=== PATIENT | female | born 1985 | race Caucasian/White ===

== ENCOUNTER 2021-03-16 10:56 | Outpatient (REF) | payer OTHER, SELFPAY ==
--- NOTE | ~2021-03-16 | XR_ITS ---
EXAMINATION: XR SINUSES CLINICAL INFORMATION: Other specified disorders of nose and nasal structures. COMPARISON: None TECHNIQUE: 4 views of the sinuses were obtained. FINDINGS: Paranasal sinuses appear clear without air-fluid levels. No fractures are identified. No radiodense foreign bodies. XR/XR sinus min 3V IMPRESSION: Unremarkable examination.
== END 2021-03-16 10:57 | disposition home or self-care (01) ==
LOC: HO.HMGCX 10:56
PROVIDERS: PCP Internal Medicine; Visit Provider Internal Medicine
DX: J34.89 Other specified disorders of nose and nasal sinuses (principal); J32.9 Chronic sinusitis, unspecified; R09.81 Nasal congestion
CPT/HCPCS: 70220

== ENCOUNTER 2023-04-07 09:01 | Outpatient (AMB) | payer OTHER, SELFPAY ==
--- NOTE | 2023-04-07 09:41 | MHC.PC.OV ---
Vital Signs 04/07/23 09:42 Height 5 ft 1 in Weight 150 lb 4 oz BMI 28.4 BP 106/74 Blood Pressure Location Lt brachial Position Sitting Pulse 88 Pulse Source Pulse Oximeter Pulse Oximetry (%) 98 Oxygen Delivery Method Room Air Intake Visit Reasons: PE Intake Note: pt is here for a PE pt has not had a pap in over 6 years and needs a referral Is last menstrual period known: Yes Last menstrual period: 04/03/23 Allergies citalopram Adverse Reaction (Unknown, Verified 10/23/23 16:49) palpitation and unable to sleep Medication List - Last Reconciled 04/07/23 by Luana Nava MD albuterol sulfate 2.5 mg (3 mL) inhalation QID PRN albuterol sulfate 90 mcg/actuation 2 puffs inhalation QID PRN budesonide-formoterol 160-4.5 mcg/actuation (Symbicort) 2 puffs inhalation Q12H dicyclomine 20 mg PO BID fexofenadine-pseudoephedrine 60-120 mg ER (Allergy Relief-D (fexofenadine)) 1 tab PO Q12H PRN montelukast 10 mg PO DAILY nebulizers Use as directed every 4 hours as needed for episodes of wheezing and bronchospasm Tobacco use date assessed: 04/07/23 Dental Screening Dental Screen Date: 04/07/23 Did you have a dental visit in the last 12 months?: No Did you have a dental problem in the last 6 months where you did not have access to dental care?: No Was dental information given to patient?: Patient has dentist HPI PE HPI Details 37-year-old lady with mild intermittent asthma Here today for physical exam. She is overdue for her cervical cancer screening done in 2016. She is up-to-date with her yearly flu shot, and has had pneumonia vaccine in the past as well as Tdap, has not yet had her COVID booster. Having intermittent episodes of difficulty swallowing both solids and liquids, and has intermittent episodes of abdominal bloating and cramping, accompanied by intermittent episodes of constipation alternating with diarrhea. Complaining of intermittent numbness and tingling in wrists and fingers of both hands [facility] Medical History (Updated 01/22/24 @ 14:54 by Luana Nava MD) Difficulty swallowing Nasal congestion Generalized anxiety disorder Mild intermittent asthma Food allergy Allergic rhinitis Asthma Surgical History History of section Family History Father Diabetes mellitus Fibromyalgia Mother Depression Maternal Grandfather Unknown family medical history Maternal Grandmother Alzheimer's disease Paternal Grandfather No problems noted. Paternal Grandmother Diabetes mellitus Substance use disorder Mental health disorder Brother No problems noted. Brother No problems noted. Brother No problems noted. Brother No problems noted. Daughter No problems noted. Daughter No problems noted. Daughter No problems noted. Maternal Uncle Substance use disorder Mental health disorder Maternal Uncle Substance use disorder Mother Mental health disorder Social History Housing: House Patient Tobacco Use Status: Current someday Tobacco user Cigarettes Per Day: 2 e-Cigarette/Vaping Use: Never Used service: No Current occupational status: employed Cognitive needs: No Hearing needs: No Vision needs: No Female Reproductive History Menstrual Date of last menstrual period: 04/03/23 Questionnaire PHQ-9 Over the last 2 weeks, how often have you been bothered by any of the following problems? 1. Little interest or pleasure in doing things: several days 2. Feeling down, depressed, or hopeless: several days 3. Trouble falling or staying asleep, or sleeping too much: more than half the days 4. Feeling tired or having little energy: more than half the days 5. Poor appetite or overeating: several days 6. Feeling bad about yourself - or that you are a failure or have let yourself or your family down: not at all 7. Trouble concentrating on things, such as reading the newspaper or watching television: not at all 8. Moving or speaking so slowly that other people could have noticed. Or the opposite - being so fidgety or restless that you have been moving around a lot more than usual: more than half the days 9. 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 Corbin Segal, Gemma Jamil, Fletcher Castro and colleagues, with an educational bennett from [employer]. Thrive Questionnaire Date Thrive assessed: 04/07/23 I am a: Patient What is your living situation today?: I have a steady place to live Within the past 12 months, did the food you bought not last and you didn't have the money to get more?: Never true Within the past 12 months, did you worry whether your food would run out before you got money to buy more?: Never true Do you have trouble paying for medicines?: No Do you have trouble getting transportation to medical appointments?: No Do you have trouble paying your heating and electricity bill?: No Do you have trouble taking care of your child, family member or friend?: No Do you have trouble with day-to-day activities such as bathing, preparing meals, shopping, managing finances, etc.?: No Are you currently unemployed and looking for a job?: No Are you interested in more education?: No AUDIT C Alcohol Use Questionnaire (AUDIT-C) 1. How often do you have a drink containing alcohol?: Monthly or less 2. How many drinks containing alcohol do you have on a typical day when you are drinking?: 1 or 2 3. How often do you have six or more drinks on one occasion?: Never Total Score: 1 BRYANNA-7 AMB Questionnaire BRYANNA-7 Date BRYANNA - 7 assessed: 04/07/23 Feeling nervous, anxious, or on edge: 2 = More than half the days Not being able to stop or control worryin = Several days Worrying too much about different things: 1 = Several days Trouble relaxin = Several days Being so restless that it is hard to sit still: 1 = Several days Becoming easily annoyed or irritable: 1 = Several days Feeling afraid as if something awful might happen: 1 = Several days Total BRYANNA-7 score (0-4 normal; 5-9 mild; 10-14 moderate; 15-21 severe): 8 Source: Developed by Drs. Corbin Segal, Gemma Jamil, Fletcher Castro and colleagues, with an educational bennett from [employer]. BRYANNA-7 Assessment Billing BRYANNA-7 Assessment Tool: BRYANNA-7 Assessment [id number] Review of Systems Const Reports as per HPI, Reports fatigue and Reports headache(s) Eyes Denies change in vision ENT Reports dysphagia, Denies dizziness, Reports headache(s), Denies hoarseness and Denies epistaxis Card Denies chest pain, Denies rapid heart rate, Denies irregular heart rhythm and Denies dyspnea Resp Denies chest congestion, Denies cough, Denies dyspnea and Denies wheezing GI Denies melena, Denies hematochezia, Reports dysphagia and Denies nausea Reports no additional complaints Musc Reports no additional complaints Skin/Breast Denies breast pain and Denies breast mass Neuro Denies dizziness and Reports headache(s) Psych Reports as per HPI Endo Reports fatigue Dinh/Lymph Reports no additional complaints Aller/Immun Denies wheezing Physical exam (Primary Care) Vital Signs: Last Vital Signs Pulse 88 04/07/23 09:42 BP 106/74 04/07/23 09:42 Pulse Ox 98 04/07/23 09:42 Oxygen Delivery Method Room Air 04/07/23 09:42 BMI result Body Mass Index 28.4 Tobacco/Smoking Status: Tobacco use Status Tobacco use date assessed 04/07/23 04/07/23 09:48 Patient Tobacco Use Status Current someday Tobacco 04/07/23 09:48 e-Cigarette/Vaping Use Never Used 04/07/23 09:41 PHQ-9: PHQ-9 Score PHQ-9: Total score 9 04/07/23 10:09 Depression Screening Interpretation: Positive (on escitalopram ) Depression Screening Follow-up: Existing condition, In treatment and 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 Mental Health 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 F/U Thrive Assessment: Date of Thrive Assessment Date Thrive assessed 04/07/23 04/07/23 09:58 Const General: no acute distress and alert Nutritional Appearance: average body habitus Orientation/consciousness: patient oriented x3 HENMT Ears: hearing grossly normal bilaterally, external ears normal, TM's normal bilaterally and EAC's normal General nose exam: Normal external nose present and Abnormal mucous membranes and turbinates present erythematous Face and sinus: Yes sinus tenderness (maxillary areas) Mouth: Normal oral and palatal mucosa present, oropharynx normal and moist mucous membranes Neck Neck: Yes full ROM, Yes no lymphadenopathy and Yes supple Chest Breast/axilla palpation: normal palpation of the breasts Resp Effort & Inspection: normal respiratory effort and able to speak in complete sentences Auscultation: clear to auscultation bilaterally Cardio Other: S1-S2 present regular rate and rhythm GI Palpation (GI): Soft to palpation, nontender, no guarding and no masses Percussion: Yes tympanic to percussion Auscultation: Hyperactive bowel sounds present General: Yes no CVA tenderness Back/Spine/Pelvis Back: no CVA tenderness and No back tenderness Skin General skin exam: no rashes or lesions noted Neuro General: patient oriented x3 Extrem General: Yes full ROM, Yes no joint enlargement, Yes no clubbing, cyanosis or edema, Yes no calf tenderness and Yes normal gait Psych Appearance: grossly normal and well kempt Mental Status: mental status grossly normal Speech and movement: Normal speech and movement present Affect: normal affect Thought process: Normal thought process present Thought content: Normal thought content present Office Procedures Flu Questionnaire Does the patient have a severe egg allergy?: No Does the patient have severe life threatening allergies?: No Does the patient have a fever or illness today?: No Has the patient ever had Guillain-[place] Syndrome?: No Has the patient ever had any past reaction to a flu shot?: No Immunizations flu vacc [id number] 6mos up(PF) 60 mcg(15 mcgx4)/0.5 mL IM syringe Performing Provider: Luana Nava MD Performing Location: [facility] – [place] Adult [facility] Administered by: Sharon Zhou CMA on 04/07/23 09:56 Dose Route Admin Location Dispensed Lot Number Expiration Date NDC [employer] 0.5 mL IM Left Deltoid 0.5 mL [id number] 12/14/23 11571-104-85 [employer] VIS Given Date VIS Provided VIS Publication Date 04/07/23 Single Vaccine 21 Eligibility Eligibility Date Funding Source Not [facility] Eligible 04/07/23 Private Assessment and Plan Assessment & Plan (1) Cervical cancer screening: Code(s): Z12.4 - Encounter for screening for malignant neoplasm of cervix Plan: Referred to OBGYN for routine Pap and pelvic exam, (2) Difficulty swallowing: Code(s): R13.10 - Dysphagia, unspecified Plan: Barium swallow ordered (3) Numbness and tingling in left arm: Code(s): R20.0 - Anesthesia of skin; R20.2 - Paresthesia of skin Plan: Nerve conduction study ordered (4) Mild intermittent asthma: Code(s): J45.20 - Mild intermittent asthma, uncomplicated Qualifiers: Asthma complication type: uncomplicated Qualified Code(s): J45.20 - Mild intermittent asthma, uncomplicated Plan: Currently on albuterol inhaler that he uses as needed, and on Symbicort 2 puffs every 12 hours, rinse mouth after use. Flu shot given today (5) Allergic rhinitis: Code(s): J30.9 - Allergic rhinitis, unspecified Qualifiers: Allergic rhinitis trigger: unspecified Allergic rhinitis seasonality: unspecified Qualified Code(s): J30.9 - Allergic rhinitis, unspecified Plan: Currently on montelukast 10 mg daily (6) Annual visit for general adult medical examination with abnormal findings: Code(s): Z00.01 - Encounter for general adult medical examination with abnormal findings Plan: Will check appropriate labs. Recommended dental visit every 6 months and regular eye exams, at least every 2 years. Take adequate calcium in diet and vitamin-D 3 at 2000 IU per cap once a day, in addition to weight-bearing exercises to help maintain good muscle tone and weight control. Instructed to do self-breast exam, and recommended to get yearly mammogram, starting at age 40. Flu vaccine given today (7) IBS (irritable bowel syndrome): Code(s): K58.9 - Irritable bowel syndrome without diarrhea Plan: Prescription sent for dicyclomine 20 mg 1 tablet twice a day, FODMAP diet discussed with patient Orders: Orders Vitamin D 25-OH Total 04/07/23 R13.10 - Dysphagia, unspecified, J45.20 - Mild intermittent asthma, uncomplicated, J30.9 - Allergic rhinitis, unspecified, Z00.01 - Encounter for general adult medical examination with abnormal findings, R20.0 - Anesthesia of skin, R20.2 - Paresthesia of skin Hemoglobin and Hematocrit 04/07/23 R13.10 - Dysphagia, unspecified, J45.20 - Mild intermittent asthma, uncomplicated, J30.9 - Allergic rhinitis, unspecified, Z00.01 - Encounter for general adult medical examination with abnormal findings, R20.0 - Anesthesia of skin, R20.2 - Paresthesia of skin Lipid Panel 04/07/23 R13.10 - Dysphagia, unspecified, J45.20 - Mild intermittent asthma, uncomplicated, J30.9 - Allergic rhinitis, unspecified, Z00.01 - Encounter for general adult medical examination with abnormal findings, R20.0 - Anesthesia of skin, R20.2 - Paresthesia of skin Influenza [id number] Immunization 04/07/23 Z23 - Encounter for immunization [place] barium swallow 04/07/23 R13.10 - Dysphagia, unspecified NE nerve conduction velocity 04/07/23 R20.0 - Anesthesia of skin, R20.2 - Paresthesia of skin Vitamin B12 and Folate 04/07/23 R13.10 - Dysphagia, unspecified, J45.20 - Mild intermittent asthma, uncomplicated, J30.9 - Allergic rhinitis, unspecified, Z00.01 - Encounter for general adult medical examination with abnormal findings, R20.0 - Anesthesia of skin, R20.2 - Paresthesia of skin TSH reflex Free T4 04/07/23 R13.10 - Dysphagia, unspecified, J45.20 - Mild intermittent asthma, uncomplicated, J30.9 - Allergic rhinitis, unspecified, Z00.01 - Encounter for general adult medical examination with abnormal findings, R20.0 - Anesthesia of skin, R20.2 - Paresthesia of skin Basic Metabolic Panel Fasting 04/07/23 R13.10 - Dysphagia, unspecified, J45.20 - Mild intermittent asthma, uncomplicated, J30.9 - Allergic rhinitis, unspecified, Z00.01 - Encounter for general adult medical examination with abnormal findings, R20.0 - Anesthesia of skin, R20.2 - Paresthesia of skin Referrals AGRICULTURE INSTRUCTOR Referral Z12.4 - Encounter for screening for malignant neoplasm of cervix Medications: Changed From dicyclomine 20 mg PO BID R14.0 - Abdominal distension (gaseous), R10.9 - Unspecified abdominal pain To dicyclomine 20 mg PO BID 180 tabs 2RF 3 months R14.0 - Abdominal distension (gaseous), R10.9 - Unspecified abdominal pain Coding Level of Care Code Est Pt Prev Care 18-39y([id number]) Diagnoses Cervical cancer screening Z12.4 Difficulty swallowing R13.10 Numbness and tingling in left arm R20.0; R20.2 Mild intermittent asthma without complication J45.20 Asthma complication type: uncomplicated Allergic rhinitis, unspecified seasonality, unspecified trigger J30.9 Allergic rhinitis trigger: unspecified Allergic rhinitis seasonality: unspecified Annual visit for general adult medical examination with abnormal findings Z00.01 IBS (irritable bowel syndrome) K58.9 Additional Codes BRYANNA-7 Assessment Billing - BRYANNA-7 Assessment Tool: BRYANNA-7 Assessment [id number] ([id number])
[2023-04-07 09:42] VITALS: BP 106/74; PULSE 88; O2SAT 98; BMI 28.4
== END 2023-04-07 11:32 | disposition home or self-care (01) ==
PROVIDERS: PCP Internal Medicine; Visit Provider Internal Medicine
DX: Z12.4 Encounter for screening for malignant neoplasm of cervix (principal); R13.10 Dysphagia, unspecified; R20.0 Anesthesia of skin; R20.2 Paresthesia of skin; J45.20 Mild intermittent asthma, uncomplicated; J30.9 Allergic rhinitis, unspecified; Z00.01 Encounter for general adult medical examination with abnormal findings; K58.9 Irritable bowel syndrome, unspecified
CPT/HCPCS: 90471; 90686; 99499

== ENCOUNTER 2023-10-23 16:16 | Outpatient (AMB) | payer OTHER, SELFPAY ==
[2023-10-23 16:19] VITALS: BP 110/70; PULSE 95; O2SAT 83; BMI 28.2
--- NOTE | 2023-10-23 16:19 | A.OFFPC_ITS ---
<Statement entered by Luana Nava MD - 11/13/24 01:46> This note has been administratively?closed. Vital Signs 10/23/23 16:19 Height 5 ft 1 in Weight 149 lb 2 oz BMI 28.2 BP 110/70 Blood Pressure Location Lt brachial Position Sitting Pulse 95 Pulse Source Pulse Oximeter Pulse Oximetry (%) 83 L Oxygen Delivery Method Room Air Intake Visit Reasons: on and off rib pain Allergies citalopram Adverse Reaction (Unknown, Verified 10/05/24 14:23) palpitation and unable to sleep Medication List - Last Reconciled 10/23/23 by Luana Nava MD albuterol sulfate 2.5 mg (3 mL) inhalation QID PRN albuterol sulfate 90 mcg/actuation 2 puffs inhalation QID PRN budesonide-formoterol 160-4.5 mcg/actuation (Symbicort) 2 puffs inhalation Q12H dicyclomine 20 mg PO BID 3 months fexofenadine-pseudoephedrine 60-120 mg ER (Allergy Relief-D (fexofenadine)) 1 tab PO Q12H PRN montelukast 10 mg PO DAILY nebulizers Use as directed every 4 hours as needed for episodes of wheezing and bronchospasm Tobacco use date assessed: 10/23/23 Dental Screening Dental Screen Date: 10/23/23 Did you have a dental visit in the last 12 months?: Yes Did you have a dental problem in the last 6 months where you did not have access to dental care?: No [facility] Medical History (Updated 10/05/24 @ 14:45 by Maritza Anderson PA-C) Difficulty swallowing Nasal congestion Generalized anxiety disorder Mild intermittent asthma Food allergy Allergic rhinitis Asthma Surgical History History of section Family History Father Diabetes mellitus Fibromyalgia Mother Depression Maternal Grandfather Unknown family medical history Maternal Grandmother Alzheimer's disease Paternal Grandfather No problems noted. Paternal Grandmother Diabetes mellitus Substance use disorder Mental health disorder Brother No problems noted. Brother No problems noted. Brother No problems noted. Brother No problems noted. Daughter No problems noted. Daughter No problems noted. Daughter No problems noted. Maternal Uncle Substance use disorder Mental health disorder Maternal Uncle Substance use disorder Mother Mental health disorder Social History Housing: House Patient Tobacco Use Status: Current someday Tobacco user Cigarettes Per Day: 2 e-Cigarette/Vaping Use: Never Used Substance Use Type: Marijuana service: No Current occupational status: employed Cognitive needs: No Hearing needs: No Vision needs: No Questionnaire PHQ-9 Over the last 2 weeks, how often have you been bothered by any of the following problems? 1. Little interest or pleasure in doing things: more than half the days 2. Feeling down, depressed, or hopeless: more than half the days 3. Trouble falling or staying asleep, or sleeping too much: nearly every day 4. Feeling tired or having little energy: several days 5. Poor appetite or overeating: several days 6. Feeling bad about yourself - or that you are a failure or have let yourself o r your family down: several days 7. Trouble concentrating on things, such as reading the newspaper or watching television: several days 8. Moving or speaking so slowly that other people could have noticed. Or the opposite - being so fidgety or restless that you have been moving around a lot more than usual: not at all 9. Thoughts that you would be better off or of hurting yourself in some way: not at all Total score: 11 Depression Screening Interpretation: Positive Depression Screening Follow-up: Existing condition and New Medication prescribed Depression Screening Done: Yes 41192 - PHQ-9 Billing: Yes Source: Developed by Drs. Corbin Segal, Gemma Jamil, Fletcher Castro and colleagues, with an educational bennett from [employer]. Thrive Questionnaire Date Thrive assessed: 10/23/23 I am a: Patient What is your living situation today?: I have a steady place to live Within the past 12 months, did the food you bought not last and you didn't have the money to get more?: Never true Within the past 12 months, did you worry whether your food would run out before you got money to buy more?: Never true Do you have trouble paying for medicines?: No Do you have trouble getting transportation to medical appointments?: No Do you have trouble paying your heating and electricity bill?: No Do you have trouble taking care of your child, family member or friend?: No Do you have trouble with day-to-day activities such as bathing, preparing meals, shopping, managing finances, etc.?: No Are you currently unemployed and looking for a job?: No Are you interested in more education?: No THRIVE Score: 0 AUDIT C Alcohol Use Questionnaire (AUDIT-C) 1. How often do you have a drink containing alcohol?: Monthly or less 2. How many drinks containing alcohol do you have on a typical day when you are drinking?: 1 or 2 3. How often do you have six or more drinks on one occasion?: Never Total Score: 1 Score Reviewed/Action Taken: Yes BRYANNA-7 AMB Questionnaire BRYANNA-7 Date BRYANNA - 7 assessed: 10/23/23 Feeling nervous, anxious, or on edge: 3 = Nearly every day Not being able to stop or control worryin = More than half the days Worrying too much about different things: 2 = More than half the days Trouble relaxin = Several days Being so restless that it is hard to sit still: 1 = Several days Becoming easily annoyed or irritable: 1 = Several days Feeling afraid as if something awful might happen: 0 = Not at all Total BRYANNA-7 score (0-4 normal; 5-9 mild; 10-14 moderate; 15-21 severe): 10 Source: Developed by Drs. Corbin Segal, Gemma Jamil, Fletcher Castro and colleagues, with an educational bennett from [employer]. BRYANNA-7 Assessment Billing BRYANNA-7 Assessment Tool: BRYANNA-7 Assessment [id number] Physical exam (Primary Care) Vital Signs: Last Vital Signs Pulse 95 10/23/23 16:19 BP 110/70 10/23/23 16:19 Pulse Ox 83 L 10/23/23 16:19 Oxygen Delivery Method Room Air 10/23/23 16:19 BMI result Body Mass Index 28.2 Tobacco/Smoking Status: Tobacco use Status Tobacco use date assessed 10/23/23 10/23/23 16:28 Patient Tobacco Use Status Current someday Tobacco 10/23/23 16:28 e-Cigarette/Vaping Use Never Used 10/23/23 16:28 PHQ-9: PHQ-9 Score PHQ-9: Total score 11 11/12/24 09:45 Depression Screening Interpretation: Positive Depression Screening Follow-up: Existing condition and New Medication prescribed Thrive Assessment: Date of Thrive Assessment Date Thrive assessed 10/23/23 10/23/23 16:46 Coding Level of Care Code Admin Sign Off/No Billing Diagnoses Pain of left breast N64.4 Acute sinusitis J01.90 Additional Codes BRYANNA-7 Assessment Billing - BRYANNA-7 Assessment Tool: BRYANNA-7 Assessment [id number] ([id number])
== END 2023-10-23 16:56 | disposition home or self-care (01) ==
PROVIDERS: PCP Internal Medicine; Visit Provider Internal Medicine
DX: N64.4 Mastodynia (principal); J01.90 Acute sinusitis, unspecified
CPT/HCPCS: 99499

== ENCOUNTER 2023-11-21 14:26 | Outpatient (REF) | payer OTHER, SELFPAY ==
--- NOTE | ~2023-11-21 | US_ITS ---
EXAMINATION: MM DIAGNOSTIC DIGITAL BREAST TOMOSYNTHESIS, BILATERAL US BREAST LIMITED, BILATERAL MAMMOGRAPHY: CLINICAL INFORMATION: 38-year-old female, baseline exam, pain over upper outer quadrant left breast last 4 weeks. No history of trauma, no palpable abnormality. No significant family history of breast CVA. No prior surgeries. COMPARISON: Mammography: None. Baseline exam. TECHNIQUE: Digital breast tomosynthesis is performed in both the craniocaudal and mediolateral oblique views along with computer-aided detection (CAD). Synthesized 2D images are generated from the tomosynthesis. In addition, bilateral cysts 3-D spot compression views in the CC and MLO projections were obtained, as well as an extra left CC spot compression view. This was followed by bilateral diagnostic breast ultrasound. FINDINGS: The breasts are heterogeneously dense, which may obscure small masses (ACR BI-RADS breast composition Category c). Left breast: There is asymmetric tissue density in the upper outer left breast, which effaces on spot compression views consistent with normal glandular tissue. No underlying mass, area of architectural distortion, or suspicious calcification in the left breast. There is a possible oval mass versus island of dense parenchymal tissue anterior left breast just superior and lateral to the nipple line. This will be evaluated with ultrasound. -There is no definite correlate for breast pain in the upper outer quadrant. Right breast: There are one view asymmetries in the anterior upper MLO view, and far lateral anterior CC view, both which efface on spot compression views, consistent with summation artifact of normal overlapping fibroglandular tissue. There are is a 9 mm circumscribed oval mass in the 9:00 axis, and a CM circumscribed mass in the 10-11 o'clock axis more superoanteriorly. These will be evaluated by ultrasound. Otherwise, no additional suspicious masses, suspicious calcifications, or areas of architectural distortion. ULTRASOUND: CLINICAL INFORMATION: As above. COMPARISON: -. Baseline exam. TECHNIQUE: Targeted sonographic evaluation was performed using a high frequency linear transducer. Right breast attention was given to the 9 and 10:00 axis (upper outer quadrant). Left breast attention was given to the upper outer quadrant. Selected archived documentation. FINDINGS: RIGHT BREAST: At the 9:00 axis, 7 cm from the nipple, there is a complex cyst versus fibroadenoma with oval mildly lobular borders, wider than tall, good through transmission, and a tiny speck of intralesional color Doppler flow. This is either a small fibroadenoma, or complicated septated cyst. It measures 0.9 x 0.5 x 0.8 cm. It is probably benign. Immediately inferior to this is a prominent lobule of breast tissue mimicking a cyst. -At the 10:00 axis, 7 cm from the nipple, there is a minimally complicated cyst measuring 7 x 4 x 7 mm, probably benign as well. Six-month interval follow-up targeted right breast ultrasound recommended for both lesions, to ensure stability. These findings both correlate with the mammographic findings. LEFT BREAST: There is heterogeneously dense tissue identified. No suspicious mass is seen. There is no pathologic acoustic shadowing. No cystic abnormalities. No sonographic correlate for breast pain upper outer quadrant. US/US breast BI limited mamm only IMPRESSION: There are no findings in either breast suspicious for malignancy. There are probably benign findings in the right breast as detailed for which six-month follow-up targeted right breast ultrasound is recommended. There are no suspicious findings in the left breast, and no sonographic or mammographic findings to correlate with upper outer quadrant breast pain. Recommend clinical management. OVERALL ASSESSMENT: Mammography: BI-RADS 3 - Probably benign finding(s) - 6 month follow-up suggested Ultrasound: BI-RADS 3 - Probably benign finding(s) - 6 month follow-up suggested RECOMMENDATION: 6 Month F/U This patient's information was entered into a reminder system with a target due date for their next mammogram.
== END 2023-11-21 14:27 | disposition home or self-care (01) ==
LOC: HO.MAMMO 14:26
PROVIDERS: PCP Internal Medicine; Visit Provider Internal Medicine
DX: R92.2 Inconclusive mammogram (principal); N64.4 Mastodynia
CPT/HCPCS: 76642; 77062; 77066

== ENCOUNTER → 2023-11-21 15:00 | Outpatient (BNV) | payer OTHER, SELFPAY | PROVIDERS: PCP Internal Medicine; Visit Provider Radiology Diagnostic Radiology | DX: N60.01 Solitary cyst of right breast (principal); N64.4 Mastodynia | CPT/HCPCS: 76642; 77062; 77066 ==

== ENCOUNTER 2024-05-06 12:55 | Emergency (ER) | payer OTHER, SELFPAY ==
[2024-05-06] VITALS (7 sets, daily range): BP systolic 89–112; BP diastolic 50–67; PULSE 74–101; RESP 14–20; TEMP 36.6–36.9; O2SAT 95–98; BMI 28.2
--- NOTE | ~2024-05-06 | CT_ITS ---
EXAMINATION: CT ABDOMEN AND PELVIS WITH CONTRAST CLINICAL INFORMATION: Abdominal pain, nausea COMPARISON: None available. TECHNIQUE: Multidetector volumetric images were obtained from the superior aspect of the liver through the pubic symphysis following administration 85 mL of Omnipaque 350 intravenous contrast. Sagittal and coronal reformatted images were obtained on the technologist's workstation. Oral contrast: No This CT examination was performed using dose optimization techniques as appropriate, variously including the following: *Automated exposure control *Adjustment of mA and/or kV according to patient size (this includes techniques or standardized protocols for targeted exams where dose is matched to indication/reason for exam; i.e. extremities or head) *Use of iterative reconstruction technique DLP: 403 mGy-cm FINDINGS: LUNG BASES: Visualized lungs are clear. LIVER, GALLBLADDER, AND BILIARY TREE: The liver is normal in size, shape, and attenuation. No focal hepatic lesion or biliary ductal dilatation is present. . Gallbladder is contracted, with no evidence of radiopaque gallstones, gallbladder wall thickening, or obvious pericholecystic inflammatory changes. PANCREAS: Unremarkable. SPLEEN: Unremarkable. ADRENAL GLANDS: Unremarkable. KIDNEYS AND URETERS: The kidneys are normal in size, shape, and attenuation. No hydronephrosis, hydroureter, or calculi seen. No perinephric stranding. BLADDER: Partially distended, appearing unremarkable. GASTROINTESTINAL TRACT: The stomach and small bowel are nondistended. Colon is of normal caliber without evidence of distention. Small-moderate colonic stool burden. No colonic wall thickening or. Chronic inflammatory changes is seen. Appendix appears unremarkable. No free fluid. No free air. ABDOMINAL WALL: Small fat-containing umbilical hernia. LYMPH NODES: No lymphadenopathy is identified. VASCULAR: Normal caliber aorta. Portal vein is enhancing. PELVIC VISCERA: 4 cm left adnexal cyst,, mildly complex HU measurements 23, likely ovarian cyst . Anteverted uterus. OSSEOUS STRUCTURES: Stable small sclerotic focus in left ischial, probable bone island. No aggressive or destructive lesions are seen. CT/CT abdomen pelvis w IV con IMPRESSION: 1. There is a 4 cm left adnexal mildly complex cyst, likely an ovarian cyst. If there are pelvic symptoms, ultrasound evaluation can be obtained, as clinically indicated. As an incidental finding, the cyst is overwhelmingly likely to represent a benign functional cyst. 2. No acute intra-abdominal findings are identified. The cause of the patient's symptoms has not been determined. Clinically correlate. Additional/follow-up imaging as clinically indicated. Fleischner guidelines were followed. Electronically signed by: Hollis Bravo MD 05/06/2024 07:17 PM [facility]
--- NOTE | 2024-05-06 13:02 | ED_ITS ---
HPI - General Adult General Chief complaint: Abdominal Pain Stated complaint: abd pain, bloody stool Time Seen by Provider: 05/06/24 14:00 Source: patient Mode of arrival: ambulatory Limitations: no limitations History of Present Illness ED Provider: Kaylyn Ocasio PA-C HPI narrative: 38 yo female presents to the ER for evaluation of anxiety, asthma who presents to the ER for evaluation of 1.5 weeks of periumbilical abdominal pain and nausea. She reports today she had 1 episode of BRBPR at 830amwhen she urinated, no stool mixed with the blood. It was a small amount in the bowl and when she wiped. She was having some of the same abdominal pain at the time. Prior to this last BM was yesterday and was stick, not black or blurry. She denies any vomiting. No fevers, no urinary symptoms. No history of GI bleed in the past. She does report a history of hemorrhoids but they have never bled like this before. She denies any history of constipation. She is on a bowel regimen. She has never had a colonoscopy. She is not on blood thinners. She reports the pain in her abdomen is 4/10 and constant, worse today compared to all week. No recurrent episodes of bleeding. MD complaint: abdominal pain, BRBPR x1 Onset (ago): week(s) (1.5) Location: abdomen Radiation: non-radiation Severity: moderate Severity scale (1-10): 4 Quality: aching Pain Consistency: constant Relieving factors: none Exacerbating factors: none Associated symptoms: loss of appetite and nausea/vomiting Treatments prior to arrival: none Related Data Previous Rx's ?Medication ?Instructions ?Recorded albuterol sulfate 2.5 mg/3 mL 2.5 mg (3 mL) inhalation QID PRN 12/21/21 (0.083 %) solution for nebulization shortness of breath or wheezing #75 mL nebulizers #1 ea 12/10/22 amoxicillin 875 mg-potassium 1 tab PO Q12H #20 tabs 10/23/23 clavulanate 125 mg tablet budesonide-formoterol HFA 160 2 puff inhalation Q12H #10.2 grams 10/23/23 mcg-4.5 mcg/actuation aerosol inhaler (Symbicort) montelukast 10 mg tablet 10 mg PO DAILY #90 tabs 10/23/23 albuterol sulfate 90 mcg/actuation 2 puff inhalation QID PRN 03/05/24 aerosol inhaler shortness of breath or wheezing #8.5 grams dicyclomine 20 mg tablet 20 mg PO BID 3 months #180 tabs 03/23/24 escitalopram oxalate 10 mg tablet 10 mg PO DAILY #30 tabs 04/14/24 Allergies Allergy/AdvReac Type Severity Reaction Status Date / Time citalopram AdvReac Unknown palpitation Verified 05/06/24 13:01 and unable to sleep Review of Systems 2 Review of Systems: Yes all other systems are reviewed and are negative [facility] Past Medical History Medical History (Updated 05/06/24 @ 19:31 by GEOVANI Caceres) Difficulty swallowing Nasal congestion Generalized anxiety disorder Mild intermittent asthma Food allergy Allergic rhinitis Asthma Surgical History History of section Family History Family History Father Diabetes mellitus Fibromyalgia Mother Depression Maternal Grandfather Unknown family medical history Maternal Grandmother Alzheimer's disease Paternal Grandfather No problems noted. Paternal Grandmother Diabetes mellitus Substance use disorder Mental health disorder Brother No problems noted. Brother No problems noted. Brother No problems noted. Brother No problems noted. Daughter No problems noted. Daughter No problems noted. Daughter No problems noted. Maternal Uncle Substance use disorder Mental health disorder Maternal Uncle Substance use disorder Mother Mental health disorder Social History Social History Housing: House Patient Tobacco Use Status: Current someday Tobacco user Cigarettes Per Day: 2 Smoked in Last 30 Days: Yes e-Cigarette/Vaping Use: Never Used Use of substances other than those prescribed or required for medical reasons: Yes Substance Use Type: Marijuana Advance Directives: No Advance Directives Information Provided: Yes Do you have a plan to hurt others: No Plan Patient : No service: No Current occupational status: employed Cognitive needs: No Hearing needs: No Vision needs: No Physical Exam ED Vital Signs: Vital Signs - 24 hr 05/06/24 12:58 05/06/24 15:22 05/06/24 17:10 Temperature 98.2 F 97.8 F 98.4 F Pulse Rate 101 H 88 74 Respiratory Rate 20 16 17 Blood Pressure 112/67 96/50 L 90/62 Pulse Oximetry 98 98 98 Oxygen Delivery Method Room Air Room Air Room Air 05/06/24 18:45 05/06/24 19:17 Temperature 98.5 F 98.1 F Pulse Rate 83 78 Respiratory Rate 16 14 Blood Pressure 89/52 L 100/64 Pulse Oximetry 95 98 Oxygen Delivery Method Room Air Room Air BMI result Body Mass Index 28.2 Appearance: Alert. Oriented X3. No acute distress. Head: normocephalic, atraumatic. Eyes: Pupils equal, round and reactive to light. ENT: Pharynx normal. No tonsillar swelling or exudate. Neck: Normal inspection. Neck supple. CVS: Normal heart rate and rhythm. Pulses normal. Respiratory: No respiratory distress. Breath sounds normal. Abdomen: Soft with periumbilical tenderness, +guarding, no rebound, normal active +BS x4 CAROL: External, nonthrombosed hemorrhoids that are nontender, there is a small palpable internal hemorrhoid at for clock, no active bleeding. No rectal mass. No stool in the vaul Skin: Skin warm and dry. Normal skin color. Normal skin turgor. No rashes. Extremities: No lower extremity edema. No joint swelling. Neuro/psych: Oriented X 3. No motor deficit. No sensory deficit. CN II-XII intact. Normal speech and cognition. Course Course Course Narrative: RME: 38-year-old female presents to ED for bleeding from rectum with slight lower abdominal discomfort. Patient describes recommends bright red. Labs ordered. Abdomen soft benign nontender. Reevaluation(s) Reevaluation #1: Misael Roberts PA-C have accepted care of the patient and signed out pending imaging and final disposition Reevaluation #2: CT/CT abdomen pelvis w IV con IMPRESSION: 1. There is a 4 cm left adnexal mildly complex cyst, likely an ovarian cyst. If there are pelvic symptoms, ultrasound evaluation can be obtained, as clinically indicated. As an incidental finding, the cyst is overwhelmingly likely to represent a benign functional cyst. 2. No acute intra-abdominal findings are identified. The cause of the patient's symptoms has not been determined. Clinically correlate. Additional/follow-up imaging as clinically indicated. Carlos guidelines were followed. Electronically signed by: Hollis Bravo MD 05/06/2024 07:17 PM [facility] I discussed findings with the patient, she was already aware that she has an ovarian cysts, she has appropriate follow up with Gynecology she is eager for discharge asking to leave Time: 19:27 Medications Administered Discontinued Medications Generic Name Dose Route Start Last Admin Trade Name Evelin PRN Reason Stop Dose Admin Iohexol 85 ml 05/06/24 16:02 05/06/24 16:02 Iohexol 350 Mg/Ml 100 Ml Infus..Btl IV 05/06/24 16:03 85 ml ONCE ONE Administration Medical Decision Making Medical Decision Making [facility] Narrative: 38-year-old female presents to the ER for evaluation of periumbilical abdominal pain and nausea for the last week and a half along with 1 episode of bright red blood per rectum today. Examination is consistent with both internal and external hemorrhoids which is likely the cause of her rectal bleeding. She does have periumbilical tenderness on examination with some guarding as well. Her lab work is reassuring with normal LFTs and lipase. CT scan is pending - signed out to Kristi OLIVO Differential Diagnosis Differential Diagnoses: The differential diagnosis associated with the presentation includes hemorrhoids, diverticulitis, diverticluosis, gastroenteritis, pancreatitis Admission/Observation Consideration of admission/observation: Escalation of care including admission/observation considered Lab Data [facility] Lab Attestation statement: I reviewed the patient's lab results. 05/06/24 13:11 05/06/24 13:11 Labs: Lab Results 05/06/24 Range/Units 13:11 WBC 8.6 (4.8-10.8) X10*3/uL RBC 4.53 (4.20-5.50) X10*6/uL Hgb 13.8 (12.0-16.0) g/dl Hct 40.7 (37.0-47.0) % MCV 89.8 (80.0-98.0) fL MCH 30.5 (27.0-33.0) pg MCHC 33.9 (31.0-35.0) g/dl RDW 12.6 (11.0-16.0) % Plt Count 236 (160-400) X10*3/uL MPV 9.9 (9.4-12.3) fL Immature Gran % (Auto) 0.7 H (0.0-0.4) % Neut % (Auto) 57.8 (45-73) % Lymph % (Auto) 23.4 (20-40) % Armstrong % (Auto) 5.7 (2-11) % Eos % (Auto) 11.9 H (0-4) % Baso % (Auto) 0.5 (0-2) % Lymph # (Auto) 2.0 (1.2-4.9) X10*3/uL Armstrong # (Auto) 0.5 (0.1-1.2) X10*3/uL Eos # (Auto) 1.0 H (0.0-0.4) X10*3/uL Baso # (Auto) 0.0 (0.0-0.2) X10*3/uL Abs Immat Gran (auto) 0.06 H (0.00-0.03) X10*3/uL Absolute Neuts (auto) 4.9 (2.0-8.3) x10*3/uL Absolute Nucleated RBC 0.000 (0.0-0.012) X10*3/uL Nucleated RBC % (auto) 0.0 (0.0-0.2) /100WBC PT 11.9 (10.9-12.4) SEC INR 1.0 (0.9-1.1) APTT 33.8 (26.0-36.8) SEC Sodium 141 (135-145) mmol/L Potassium 3.3 (3.3-5.1) mmol/L Chloride 109 H (96-108) mmol/L Carbon Dioxide 25 (22-29) mmol/L Anion Gap 10 L (12-20) BUN 10 (9-16) mg/dL Creatinine 0.81 (0.5-1.4) mg/dL Estim Creat Clear Calc 81.3 Estimated GFR > 60 Random Glucose 101 (60-115) mg/dL Calcium 9.6 (8.4-10.2) mg/dL Total Bilirubin 0.7 (0.0-1.0) mg/dL AST 18 (5-31) U/L ALT 10 (0-31) U/L Alkaline Phosphatase 49 (39-117) U/L Total Protein 6.9 (6.5-8.0) g/dL Albumin 4.2 (3.5-5.0) g/dL Lipase 30 (8-78) U/L Beta HCG, Quant < 2 mIU/mL External Record Review External record reviewed: Outpatient record and Prior outpatient labs Prescription Management I considered prescription management with: Pain Medication Chronic Conditions Patient?s care impacted by: Other (hemorrhoids ) Critical Care Time Critical Care Time Critical Care Time: No Discharge Plan Discharge Clinical Impression: Hemorrhoids, Abdominal pain, Cyst of left ovary Patient Disposition: Home, Self-Care Instructions: Hemorrhoids (DC), Abdominal Pain (ED) Additional Instructions: your lab workup today was normal your CT scan showed that you have a left ovarian cyst, you can follow up with 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 specialist ....you can use OTC ibuprofen 600 mg every 6 hours, taken with food, for pain Prescriptions: No Action albuterol sulfate 90 mcg/actuation HFA aerosol inhaler 2 puff inhalation QID PRN (Reason: shortness of breath or wheezing) Qty: 8.5 2RF dicyclomine 20 mg tablet 20 mg PO BID 90 Days Qty: 180 0RF escitalopram oxalate 10 mg tablet 10 mg PO DAILY Qty: 30 1RF albuterol sulfate 2.5 mg /3 mL (0.083 %) solution for nebulization 2.5 mg inhalation QID PRN (Reason: shortness of breath or wheezing) Qty: 75 0RF (DME) nebulizers Misc See Rx Instructions .Route Qty: 1 0RF Rx Instructions: Use as directed every 4 hours as needed for episodes of wheezing and bronchospasm budesonide-formoterol [Symbicort] 160-4.5 mcg/actuation HFA aerosol inhaler 2 puff inhalation Q12H Qty: 10.2 5RF montelukast 10 mg tablet 10 mg PO DAILY Qty: 90 4RF amoxicillin-pot clavulanate 875-125 mg tablet 1 tab PO Q12H Qty: 20 0RF Referrals: Luana Nava MD [Primary Care Provider] - Print Language: Kiswahili
[2024-05-06 13:15] LABS: MANUAL DIFF FLAG NO
[2024-05-06 13:25] LABS: Basophils Percent Auto 0.5 % (0-2); Eosinophils Percent Auto 11.9 % (0-4); Hematocrit 40.7 % (37.0-47.0); Hemoglobin 13.8 g/dl (12.0-16.0); Imm Gran Abs Auto 0.06 X10*3/uL (0.00-0.03); Imm Gran Pct Auto 0.7 % (0.0-0.4); Lymphocytes Percent Auto 23.4 % (20-40); Mean Corpuscular HGB Conc 33.9 g/dl (31.0-35.0); Mean Corpuscular Hemoglobin 30.5 pg (27.0-33.0); Mean Corpuscular Volume 89.8 fL (80.0-98.0); Mean Platelet Volume 9.9 fL (9.4-12.3); Monocytes Absolute Auto 0.5 X10*3/uL (0.1-1.2); Monocytes Percent Auto 5.7 % (2-11); Neutrophils Absolute Auto 4.9 x10*3/uL (2.0-8.3); Neutrophils Percent Auto 57.8 % (45-73); Platelet Count 236 X10*3/uL (160-400); Red Blood Count 4.53 X10*6/uL (4.20-5.50); Red Cell Distribution Width 12.6 % (11.0-16.0); White Blood Count 8.6 X10*3/uL (4.8-10.8)
[2024-05-06 13:38] LABS: Prothrombin Time 11.9 SEC (10.9-12.4)
[2024-05-06 13:41] LABS: Alanine Aminotransferase 10 U/L (0-31); Albumin Level 4.2 g/dL (3.5-5.0); Alkaline Phosphatase 49 U/L (39-117); Anion Gap 10 (12-20); Aspartate Amino Transferase 18 U/L (5-31); Bilirubin Total 0.7 mg/dL (0.0-1.0); Blood Urea Nitrogen 10 mg/dL (9-16); Calcium 9.6 mg/dL (8.4-10.2); Carbon Dioxide 25 mmol/L (22-29); Chloride 109 mmol/L (96-108); Creatinine Clr Calc Pharmacy 81.3; Estimated Glomerular Filt Rate > 60; Glucose Random 101 mg/dL (60-115); Partial Thromboplastin Time 33.8 SEC (26.0-36.8); Potassium 3.3 mmol/L (3.3-5.1); Sodium 141 mmol/L (135-145); Total Protein 6.9 g/dL (6.5-8.0)
[2024-05-06 13:43] LABS: HCG Quantitative < 2 mIU/mL
--- NOTE | 2024-05-06 15:42 | PC.NURSE ---
pt a&ox3, iv inserted, labs previously drawn, pt states she has 4-5/10 abd pain, pt aware we need a urine, awaiting ct scan, call gilman within reach, will continue to monitor
[2024-05-06] MEDS: iohexoL 350 MG/ML 100 ML INFUS..BTL 85 ML IV (16:02)
[2024-05-06 16:05] LABS: Lipase 30 U/L (8-78)
--- OUTSIDE RECORDS SUMMARY | 2024-05-07 14:46 | XMS_ITS | Continuity of Care Document ---
Author Organization [facility] Address [address] [place] [address]- Care Team Providers Care Assembler 1St Shift Name Role Phone Not on Staff, PCP Primary Care Physician Unavail able Encounter [facility] Date(s): 04/09/23 - 04/09/[address] [id number]- Discharge Disposition: A-D/C Home Attending Physician: Corbin Philip MD Admitting Physician: Corbin Philip MD Referring Physician: Not on Staff, Referring MD Allergies, Adverse Reactions, Alerts No Known Allergies Results Radiology Reports * Exam Date Time Procedure Performing Provider Status 04/09/23 3:10 PM Shoulder Min 2 Views Left Melida Langford; Mckinley (Verified) Notes: (Shoulder Min 2 Views Left) Reason For Exam: Pain RESULT: Shoulder Min 2 Views Left Shoulder Min 2 Views Left, 2 views Hx of Present Illness: Pt has had left arm pain for one month. Pt denies injury. Pt was told by pcpthat it is nerve impingement was told to go on Gabapentin but pt refused. Pt here for worsening pain; Reason: Pain; Clinical Question(s): Arthritis COMPARISON: None. FINDINGS: No fracture or dislocation. No arthritic change of the glenohumeral joint. Normal AC joint and portions of the clavicle included on the exam. No calcification of the rotator cuff. IMPRESSION: No acute abnormalities seen. If the patient's symptoms are severe and persistent, an MRI examination of the left shoulder could be helpful. WSN: [id number] Ordering Physician: Corbin Philip Dictated By: Korey Arriaga MD, V Dictated Date/Time: 04/09/23 3:14 pm Reviewed By: Korey Arriaga MD, V Signed By: Korey Arriaga MD, V Signed Date/Time: 04/09/23 3:14 pm Transcribed By: GUME Transcribed Date/Time: 04/09/23 3:13 pm Vital Signs Most recent to oldest [Reference Range]: 1 Height 155 cm (04/09/23 2:20 PM) Weight 68.5 kg (04/09/23 2:20 PM) Oxygen Saturation [94-100 %] 99 % (04/09/23 2:20 PM) Pulse Rate [55-90 bpm] 103 bpm *H* (04/09/23 2:20 PM) Blood Pressure [90-138/55-84 mm Hg] 121/ 80mm Hg (04/09/23 2:20 PM) Respiratory Rate [16-30 br/min] 18 br/mi n (04/09/23 2:20 PM) Temperature [96.8-100.4 DegF] 98.0 DegF (04/09/23 2:20 PM) Mode of Delivery (Oxygen) Room air (04/09/23 2:20 PM) Blood pressure sites Arm, left (04/09/23 2:20 PM) Temperature Route Temporal (04/09/23 2:20 PM) Dry Weight 68.5 kg (04/09/23 2:20 PM) Weight Obtained Via Standing scale (04/09/23 2:20 PM) Social History Social History Type Response Smoking Status 5-9 cigarettes (betw een 1/4 to 1/2 pack)/day in last 30 days entered on: 08/17/19 Sex Note * Corbin Philip MD: PERFORM, SIGN, VERIFY Event Display: Patient Education Handout Authored Date: [id number] Patient Care team information Care Team Personnel Name: Not on Staff, PCP Position: [facility] Physician (General Medicine) Member Role: PCP Name: Corbin Philip MD Position: [facility] ED Medicine MD Member Role: Admitting Physician Address: Address: [address] [place] [id number]- Name: Kim Coffman Position: [facility] ED RN W/OE and Tasks Member Role: Patient Care Provider Name: Steffi Parham Position: [facility] ED TA [facility] Care Team Related Persons Name: MELBA BENAVIDES Address: home [address] [address] Name: REX HOOVER Address: [address] [place] [address] Name: SILVESTRE TOWNSEND Address: home [address] [address]
--- OUTSIDE RECORDS SUMMARY | 2024-05-07 14:46 | XMS_ITS | Continuity of Care Document ---
Author Organization [facility] Address [address] [place] [address], [address] [place] [id number]- Care Team Providers Care Patent Attorney Name Role Phone Not on Staff, PCP Primary Care Physician Unavail able Encounter [facility] Date(s): 08/17/19 - 08/24/19 [facility]ro[facility] Medicine [address] [place] [address], [address] [place] [id number] [facility] Attending Physician: Rubina Benedict MD Referring Physician: Not on Staff, Referring MD Allergies, Adverse Reactions, Alerts Substance Reaction Severity Status NKA Active Medications No Known Medications Vital Signs Most recent to oldest [Reference Range]: 1 Height 155.5 cm (08/17/19 4:32 PM) Weight 72.8 kg (08/17/19 4:32 PM) Pulse Rate [55-90 bpm] 100 bpm *H* (08/17/19 4:32 PM) Body Mass Index [18.5-24.99] 30.11 *>HHI* (08/17/19 4:32 PM) Blood Pressure [90-138/55-84 mm Hg] 126/ 63mm Hg (08/17/19 4:32 PM) Blood pressure sites Arm, left (08/17/19 4:32 PM) Weight Obtained Via Standing scale (08/17/19 4:32 PM) Social History Social History Type Response Smoking Status 5-9 cigarettes (betw een 1/4 to 1/2 pack)/day in last 30 days entered on: 08/17/19 Sex
--- OUTSIDE RECORDS SUMMARY | 2024-05-07 14:46 | XMS_ITS | Continuity of Care Document ---
Author Organization [facility] Address [address] [facility], [address] [place] [id number]- Care Team Providers Care Wood Mill Supervisor Name Role Phone Not on Staff, PCP Primary Care Physician Unavail able Encounter [facility] Date(s): 08/17/19 - 08/27/19 [facility] Reproductive Medicine [address] [place] [address], [address] [place] [address]- [facility] Attending Physician: Efren Barnes Admitting Physician: AdmtrEfren Referring Physician: Admtr, Ar8 Allergies, Adverse Reactions, Alerts Substance Reaction Severity Status NKA Active Social History Social History Type Response Smoking Status 5-9 cigarettes (betw een 1/4 to 1/2 pack)/day in last 30 days entered on: 08/17/19 Sex
== END 2024-05-06 19:45 | disposition home or self-care (01) ==
PROVIDERS: Physician Assistant; Emergency Provider Emergency Medicine; PCP Internal Medicine
DX: K64.9 Unspecified hemorrhoids (principal); N83.202 Unspecified ovarian cyst, left side; R10.2 Pelvic and perineal pain; R11.2 Nausea with vomiting, unspecified; Z79.899 Other long term (current) drug therapy
CPT/HCPCS: 36415; 74177; 80053; 83690; 84702; 85025; 85610; 85730; 99284; Q9967

== ENCOUNTER 2024-08-04 14:10 | Outpatient (AMB) | payer OTHER, SELFPAY ==
--- OUTSIDE RECORDS SUMMARY | 2024-08-04 14:20 | XMS_ITS | Clinical Summary ---
Author Organization [facility] it Address [address] [place] [address] Care Team Providers Care Head Cashier Name Role Phone Natan Jeong MD Primary Care Provider [phone] Surgical History Surgery Date Site/Laterality Comments SECTION PROCEDURE: [place] DELIVERY ONLY ESOPHAGOGASTRODUODENOSCOPY 05/08/10 PROCEDURE: [place] ESOPHAGOGASTRODUODENOSCOPY TRANSORAL DIAGNOSTIC; COMMENT: normal Medical History Medical History Date Comments Unspecified asthma(493.90) 12/20/2005 DX:Un specified asthma(493.90) Anxiety state, unspecified DX:An xiety state, unspecified; COMMENT: Depression Asthma 12/19/2007 DX:Asthma Family History Medical History Relation Name Comments Diabetes Father Hyperlipidemia Father Arthritis Mother Hyperlipidemia Mother Relation Name Status Comments Father Alive Diabetes: Hyper lipidemia Maternal Grandmother Alzheim er's Mother Alive Paternal Grandfather Alive Diabete s Paternal Grandmother Alive Diabete s Social History Tobacco Use Types Packs/Day Years Used Date Smoking Tobacco: Former Cigarettes Q uit: 01/14/2010 Smokeless Tobacco: Never Alcohol Use Standard Drinks/Week Comments Yes 0 (1 standard drink = 0.6 oz pur e alcohol) Comments Unknown Sex and Gender Information Value Date Recorded Sex Assigned at Not on file Legal Sex Female 5:42 PM EST Gender Identity Not on file Sexual Orientation Not on file Obstetrics History Plan of Treatment Health Maintenance Due Date Last Done Comments Breast Cancer Screening 1983 Hepatitis B Vaccines (1 of 3 - 19+ 3-dose series) 10/03/2002 Cervical Cancer Screening: Pap Smear 10/03/2004 HPV Vaccines (3 - 3-dose series) 06/21/2007 02/13/2007, 12/19/2006 Pneumococcal Vaccine: Pediatrics (0 to 5 Years) and At-Risk Patients (6 to 64 Years) (2 of 2 - PCV) 06/13/2011 06/13/2010 DTaP,Tdap,and Td Vaccines (2 - Td or Tdap) 07/07/2017 07/07/2007 Depression Screening 07/15/2023 HIV Screening 07/15/2023 Hepatitis C Screening 07/15/2023 Social Influencers of Health Screening 07/15/2023 COVID-19 Vaccine ( season) 2024 Influenza Vaccine (#1) 2024 1, 06/13/2010, 03/28/2009, Additional history exists HIB Vaccines Aged Out No longer eligi ble based on patient's age to complete this topic Hepatitis A Vaccines Aged Out No long er eligible based on patient's age to complete this topic IPV Vaccines Aged Out No longer eligi ble based on patient's age to complete this topic MMR Vaccines Aged Out No longer eligi ble based on patient's age to complete this topic Meningococcal ACWY Vaccine Aged Out N o longer eligible based on patient's age to complete this topic Meningococcal B Vacine Aged Out No lo nger eligible based on patient's age to complete this topic RSV Immunization Patients Under 20 months Aged Out No longer eligible based on patient's age to complete this topic Varicella Vaccines Aged Out No longer eligible based on patient's age to complete this topic Care Teams Head Cashier Relationship Specialty Start Date End Date Natan Jeong MD [address] [place] PCP - General Internal Medicine 03/31/13
--- OUTSIDE RECORDS SUMMARY | 2024-08-04 14:20 | XMS_ITS | Data Portability ---
Author Organization [facility] [address] Address [address] [place] [address] Assessment No assessment recorded. Plan of Treatment Reminders Order Date Submit Date Provider Last Modified By Organization Details Last Modified Time Details Appointments None recorded. Lab SARS CoV 2 (COVID-19) Ag, QL, IA, upper respiratory specimen 2023 024 [facility] [address] [address], [address] [place], [address], 4 12:46:55 rapid flu (A+B) 2023 024 [facility] [address] [address], [address] [place], [address], 4 12:46:53 Referral None recorded. Procedures None recorded. Surgeries None recorded. Imaging None recorded. Medication Orders prednisone 20 mg tablet 2023 024 [facility][id number], [address] [place] [address], [address], 4 14:49:01 albuterol sulfate HFA 90 mcg/actuati on aerosol inhaler 2023 024 [facility] #2339, [address] [place] [address], [address], 4 14:49:00 benzonatate 200 mg capsule 2023 024 [facility]acy #2332, [facility] [place], [address], 4 14:49:00 Allergy Relief (fluticason e) 50 mcg/actuati on nasal spray,suspe nsion 2023 [facility] [address] [facility], [place], [address], 4 14:49:01 fexofenadin e-pseudoeph edrine ER 180 mg-240 mg tablet,ext. release 24 hr 2023 [facility], [address] [facility], [place], [address], 4 14:38:11 Allergy Relief (fluticason e) 50 mcg/actuati on nasal spray,suspe nsion 2023 [facility], [address] [facility], [place], [address], 4 14:38:13 Patient TargetsNo targets recorded. Patient Instructions Encounter Date Encounter Id Patient Instructions Last Modified By Organization Details Last Modified Time 07/03/2023 [id number] coronavirus (covid-19): care instructions Not available 07/03/2023 12:46:53 Sinusitis is an infection of the lining of the sinus cavities in your head. Sinusitis often follows a cold. It causes pain and pressure in your head and face. In most cases, sinusitis gets better on its own in 1 to 2 weeks. But some mild symptoms may last for several weeks. Sometimes antibiotics are needed. if you are having problems. It's also a good idea to know your test results and keep a list of the medicines you take. How can you care for yourself at home? Take an vkod-czz-rawpybq pain medicine. Avoid Ibuprofen, Aleve and Aspirin if . If the doctor prescribed antibiotics, take them as directed. Do not stop taking them just because you feel better. You need to take the full course of antibiotics. Be careful when taking hgup-osg-mtdngtz cold or influenza (flu) medicines and Tylenol at the same time. Many of these medicines have acetaminophen, which is Tylenol. Read the labels to make sure that you are not taking more than the recommended dose. Too much acetaminophen (Tylenol) can be harmful. Breathe warm, moist air from a steamy shower, a hot bath, or a sink filled with hot water. Avoid cold, dry air. Using a humidifier in your home may help. Follow the directions for cleaning the machine. Use saline (saltwater) nasal washes. This can help keep your nasal passages open and wash out mucus and bacteria. You can buy saline nose drops at a grocery store or [employer]. Or you can make your own at home by adding 1 teaspoon (5 millilitres) of salt and 1 teaspoon (5 millilitres) of baking soda to 2 cups (500 mL) of distilled water. If you make your own, fill a bulb syringe with the solution, insert the tip into your nostril, and squeeze gently. Blow your nose. Put a hot, wet towel or a warm gel pack on your face 3 or 4 times a day for 5 to 10 minutes each time. Try a decongestant nasal spray like oxymetazoline (Drixoral). Do not use it for more than 3 days in a row. Using it for more than 3 days can make your congestion worse. Not available 07/03/2023 12:47:44 - Covid is a vir al illness that typically self-resolves within 7-10 days. - Treatment is supportive, including, rest, fluids, humidifier, and sometimes cough suppressants and/or nasal decongestants to help reduce symptoms until your body's immune system kills the virus and the both self-recovers. -If symptoms worsen, return to clinic. - Drink plenty of fluids to keep hydrated. - Call 911 or go to Emergency room for chest pain, shortness of breath, abdominal pain, or inability to keep food or fluids down. ISOLATION GUIDELINES Everyone, regardless of vaccination status. (First day of symptoms is considered day Zero) STAY HOME 5 DAYS FROM ONSET OF SYMPTOMS, OR DAY OF TESTING IF NO SYMPTOMS!! Your have no symptoms or your symptoms are resolving after 5 days, you can leave your house. Continue to wear a mask around others for 5 additional days. If you have a fever, continue to stay home until your fever resolves. Not available 07/03/2023 12:47:33 Reason for Referral None Reported. Results Created Date Observation Date Name Description Value Unit Range Abnormal Flag Note LastModifiedBy Organization Detail LastModifiedTime 07/03/19 24 07/03/2023 rapid flu (A+B) Unknown Analyte negati ve Not Available [address] [place], [address], 07/03/2023 12:25:22 07/03/19 24 07/03/2023 rapid flu (A+B) Unknown Analyte negati ve Not Available [address] [place], [address], 07/03/2023 12:25:22 07/03/19 24 07/03/2023 SARS CoV 2 (COVI D-19) Ag, QL, IA, upper respi rator y speci men Unknown Analyte positi ve Not Available [address] [place], [address], 07/03/2023 12:25:13 07/03/19 24 07/03/2023 SARS CoV 2 (COVI D-19) Ag, QL, IA, upper respi rator y speci men Unknown Analyte yes Not Available [address] [place] [address] [address] [place], [address], 07/03/2023 12:25:13 Result Notes None recorded. Problems Name Problem SNOMED Code Status Onset Date Resolution Date Notes Provider Name and Address Organization Details Recorded Time Asthma 188180311 Active [facility] - [facility] 07/03/2023 12:24:20 Problem Notes None recorded. Medical Equipment None Reported. Allergies Allergen ID Allergen Name Allergen Category Reaction Reaction Severity Criticality Documentation Date Start Date Code Code System Note Provider Name and Address Organization Details Recorded Time 004911 ethinyl estradiol / levonorge strel medicatio n Not available Not available Not available 09/21/2023 49505 8 RxNorm Denise reddy PA - [facility] 4 14:37:57 Medications Name Sig Start Date Stop Date Status Note LastModified by Organization Details LastModified Time benzonatate 200 mg capsule Take 1 capsule 3 times a day by oral route as needed for 7 days, for cough. 2023 active Not Available Not Available Not Avai lable prednisone 20 mg tablet Take 2 tablets every day by oral route in the morning for 5 days, for inflammatio n. 2023 active Not Available Not Available Not Avai lable albuterol sulfate HFA 90 mcg/actuatio n aerosol inhaler Inhale 2 puffs every 4 hours by inhalation route as needed for 10 days, for wheezing, cough. 2023 active Not Available Not Available Not Avai lable fluticasone propionate 50 mcg/actuatio n nasal spray,suspen aakash INSTILL 1 SPRAY INTO EACH NOSTRIL ONCE DAILY FOR NASAL CONGESTION DIRECTED active Not Available Not Available Not Available albuterol sulfate active Not Available Not Available Not Available Vitals Date Recorded Body height Body mass index (BMI) Body weight Body temperature Respiratory rate Heart rate Oxygen saturation Oxygen saturation in Arterial blood by Pulse oximetry Systolic blood pressure Diastolic blood pressure Provider Name and Address Organization Details Last Updated DateTime 4 154.94 cm 28.9 kg/m2 48605.6 3 g 97.6 [degF] 18 /min 101 /min 96 % 96 % 106 mm[Hg] 67 mm[Hg] Minal Mojica PA - [facility] 4 12:22:51 Date Recorded Body height Body mass index (BMI) Body weight Body temperature Respiratory rate Heart rate Oxygen saturation Oxygen saturation in Arterial blood by Pulse oximetry Systolic blood pressure Diastolic blood pressure Provider Name and Address Organization Details Last Updated DateTime 4 154.94 cm 28.9 kg/m2 41625.6 3 g 98.3 [degF] 17 /min 100 /min 98 % 98 % 100 mm[Hg] 67 mm[Hg] Denise araujo PA - [facility] 4 14:36:00 Social History Question Answer Notes LastModified by Organizat ion Details LastModified Time Tobacco Smoking Status Current Every Day Smoker [facility] - [facility] 07/03/2023 12:24:50 What Is Your Level Of Alcohol Consumption? Occasional Information not available 09/21/2023 Have You Had A Flu Shot This Season? Yes [email or web address] Information not available 07/03/2023 Have You Had Direct Contact, Or Contact During Intimacy, With Monkeypox Rash, Scabs, Or Body Fluids From A Person With Monkeypox? No [email or web address] Information not available 07/03/2023 What Was The Date Of Your Most Recent Tobacco Screening? 09/21/2023 Information not available 09/21/2023 Do You Use Any Illicit Or Recreational Drugs? No Information not available 07/03/2023 Have You Recently Traveled Abroad? No Information not available 07/03/2023 Sex: Unknown Functional Status None recorded. Mental Status None recorded. Family History Nothing Reported. Medical History No medical history recorded. Gynecological History Statement/Question Response Date of LMP 06/09/2023 Is there any chance of ? No LMP Definite Obstetrics History GPAL:G 0 P 0 0 0 0 Past Encounters Encounter ID Performer Location Encounter Start Date Encounter Closed Date Diagnosis/Indication Diagnosis SNOMED-CT Code Diagnosis ICD10 Code Diagnosis Note [id number] [address] [place] [id number] 03/27/2018 13:09:07 03/27/2018 13:41:16 [id number] [address] [place] [id number] 09/26/2017 15:18:07 09/26/2017 16:33:20 [id number] [address] [place] [phone] 01/11/2019 14:45:05 01/11/2019 15:04:31 [id number] [address] [place] [id number] 09/04/2018 12:43:25 09/04/2018 13:29:06 [id number] [address] [place] [id number] 11/18/2017 12:30:30 11/18/2017 13:28:08 [id number] [address] [facility] [place] [address] 12/09/2018 12:18:10 12/09/2018 14:18:48 [id number] [place] [address] [facility] [address] [address] [place] [address] 07/03/2023 11:30:05 07/03/2023 12:53:43 Exposure to SARS-CoV-2 973713929 Z20.822 COVID-19 286545491 U07.1 Acute sinusitis 87830770 J01.90 [id number] [place] [address] [facility] [address] [place] [address] 09/21/2023 14:14:21 09/21/2023 14:51:01 Acute bronchitis 55112990 J20.9 Acute bronchitis is a common clinical condition characteri zed by an acute onset but persistent cough, with or without sputum production . It is typically self-limit ed, resolving within one to three weeks. Symptoms result from inflammati on of the lower respirator y tract and are most frequently due to viral infection. Treatment is focused on patient education and supportive care. Antibiotic s are not needed for the great majority of patients with acute bronchitis but are greatly overused for this condition. Reducing antibiotic use for acute bronchitis is a national and internatio [facility] care priority. In most patients, the cough persists for 1 to 3 weeks, with a average duration of 18 days. The cough may be associated with either purulent or nonpurulen t sputum production The presence of purulent sputum is a nonspecifi c finding and does not appear to be predictive of bacterial infection or that antibiotic s are needed. For the great majority of patients, use of antibiotic s does not hasten recovery or prevent complicati ons but puts patients at increased risk of adverse effects including potentiall y severe complicati ons such as Clostridio ides difficile infection and anaphylaxi s. Non-Pharma cological treatment for coughin . Throat lozenges2. Hot tea3. Honey4. Smoking cessation5 . Avoidance of second hand smoke. Pharmacolo gical Treatment: 1. Robitussin or guafenesin 2. Antihistam ines3. dextrometh orphan I would plan on being seen again if any of the following symptoms develop:1. Fever (100.5)2. Shortness of breath3. Wheezing4. Worsening Cough. I would go to the ER if you develop:1. Severe Shortness of breath2. Chest Pain3. Wheezing4. Coughing up Blood Health Concerns Section Related Observation LastModified by Organization Detai ls LastModified Time None Recorded Concern Status LastModified by Organization Details LastModified Time None Recorded Advance Directives Directive None Recorded Payers Encounter Date Sequence Insurance Name Policy Number Policy Jernigan Covered Member ID Jernigan Member ID Guarantor Name 07/03/2023 1 [facility] [employer] [place] JEREMIAS Shea [id number] Tomasz Shea 09/21/2023 1 [facility] [employer] [place] [place] JEREMIAS Shea [id number] Tomasz Shea Notes Date Note Type Note Provider Name and Address Organization Details Recorded Time 07/03/2023 text/html Sinus Complaints UCReported bypatient.Location: sinus pain;facial pain;sinus pressure Associated Symptoms:no fever; no nausea or vomiting; no sore throat; no ear fullness; no nasal itching; no eye itching; no dizziness;difficult y breathing;Post nasal drip;nasal passage blockage;cough Onset/Timing:worse in am; worse in pm Quality:minimal discomfort;worsenin g; clear Duration:frequent Severity:moderate Context:no recent upper respiratory infection; no recent sick contacts; not worse with seasonal allergen exposure;worse with environmental exposure Risk Factors:no current smoking or tobacco use; no history of nasal trauma Alleviating factors:oral steroids Aggravating factors:worse during an upper respiratory infection (a cold); worse with excess fatigue Prior Treatmentoral decongestant Max Sanders NP [address] [place], [address], [place] - [facility] 07/03/2023 12:51:58 09/21/2023 text/html Sinus Complaints UCReported bypatient.Location: sinus pain;facial pain;sinus pressure Associated Symptoms:no fever; no nausea or vomiting; no sore throat; no ear fullness; no nasal itching; no eye itching; no dizziness;difficult y breathing;Post nasal drip;nasal passage blockage;cough Onset/Timing:worse in am; worse in pm Quality:minimal discomfort;worsenin g; clear Duration:frequent Severity:moderate Context:no recent upper respiratory infection; no recent sick contacts; not worse with seasonal allergen exposure;worse with environmental exposure Risk Factors:no current smoking or tobacco use; no history of nasal trauma Alleviating factors:oral steroids Aggravating factors:worse during an upper respiratory infection (a cold); worse with excess fatigue Prior Treatmentoral decongestant Max Sanders NP [address] [place], [address], [place] - [facility] 09/22/2023 09:24:48 OBGyn Episode No OBEpisode recorded.
--- NOTE | 2024-08-04 14:59 | MHC.OFFWIV ---
Intake Vital Signs 08/04/24 15:03 Weight 152 lb BP 126/80 Blood Pressure Location Rt brachial Position Sitting Pulse 88 Pulse Source Pulse Oximeter Temp 98.5 F Temp Source Oral Pulse Oximetry (%) 98 Oxygen Delivery Method Room Air Intake Visit Reasons: EP Congestion, headache Intake Note: Patient here for bilat ear pain, runny nose, congestion that has ongoing for weeks. Patient Tobacco Use Status: Current someday Tobacco user Allergies citalopram Adverse Reaction (Unknown, Verified 08/04/24 15:02) palpitation and unable to sleep Do you need a note to return to daycare/school/sports/work: No HPI HPI Comments History of Present Illness Details She presents to office with congestion, sinus pressure ear pain Ongoing for weeks No fever or chills + pain level in face has been 12/23 Tried Ibuprofen, OTC decongestants like sudafed and dhruv +blocked ears intermittent pain Minimal cough a few weeks ago which resolved + body aches and fatigue [facility] Medical History (Updated 08/04/24 @ 15:14 by Dunia Donnelly PA-C) Difficulty swallowing Nasal congestion Generalized anxiety disorder Mild intermittent asthma Food allergy Allergic rhinitis Asthma Surgical History History of section Family History Father Diabetes mellitus Fibromyalgia Mother Depression Maternal Grandfather Unknown family medical history Maternal Grandmother Alzheimer's disease Paternal Grandfather No problems noted. Paternal Grandmother Diabetes mellitus Substance use disorder Mental health disorder Brother No problems noted. Brother No problems noted. Brother No problems noted. Brother No problems noted. Daughter No problems noted. Daughter No problems noted. Daughter No problems noted. Maternal Uncle Substance use disorder Mental health disorder Maternal Uncle Substance use disorder Mother Mental health disorder Social History Housing: House Patient Tobacco Use Status: Current someday Tobacco user Cigarettes Per Day: 2 e-Cigarette/Vaping Use: Never Used Substance Use Type: Marijuana service: No Current occupational status: employed Cognitive needs: No Hearing needs: No Vision needs: No Review of Systems Const Reports body aches, Denies chills, Reports fatigue, Denies fever(s) and Reports headache(s) Eyes Denies change in vision ENT Reports otalgia, Reports headache(s), Reports nasal congestion, Reports sinus pain, Reports sinus pressure and Denies sore throat Card Denies chest pain, Denies syncope and Denies dyspnea Resp Denies cough and Denies dyspnea Musc Reports myalgias Skin/Breast Denies rash Neuro Denies syncope and Reports headache(s) Endo Reports fatigue Physical Exam Vital Signs: Last Vital Signs Temp 98.5 F 08/04/24 15:03 Pulse 88 08/04/24 15:03 BP 126/80 08/04/24 15:03 Pulse Ox 98 08/04/24 15:03 Oxygen Delivery Method Room Air 08/04/24 15:03 General: Non-toxic, NAD. Speaking full sentences. Skin: Warm dry throughout Eye: EOMI HENT: Airway patent. Uvula midline. No pharyngeal erythema or edema. 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 Bilateral canals clear. L Tm + erythemeatous and bulging. No perforation. R TM non-erythematous, non-bulging. No TM perforation or hemotympanum noted. + frontal sinus ttp Respiratory: CTA bilaterally. No wheezes, rales or rhonchi Cardiac: RRR. No murmur Neurology: Alert. No aphasia or facial droop. Gait without abnormality Psych: Good mood and affect Assessment & Plan Assessment & Plan (1) Sinusitis: Code(s): J32.9 - Chronic sinusitis, unspecified Qualifiers: Sinusitis location: frontal Chronicity: acute Recurrence: non-recurrent Qualified Code(s): J01.10 - Acute frontal sinusitis, unspecified Plan: Patient seen and evaluated + L OM and sinusitis on exam Augmentin to pharmacy Refills given for albuterol per pt request Patient gave verbal understanding and had no additional questions or concerns at time of discharge All questions answered Medications: New amoxicillin-pot clavulanate 875-125 mg 1 tab PO BID 20 tabs 0RF Refilled albuterol sulfate 90 mcg/actuation 2 puffs inhalation QID PRN 8.5 grams 2RF shortness of breath or wheezing albuterol sulfate 2.5 mg (3 mL) inhalation QID PRN 75 mL 0RF shortness of breath or wheezing J45.20 - Mild intermittent asthma, uncomplicated Coding Level of Care Code Est Pt Level 3 (31379) Diagnoses Acute non-recurrent frontal sinusitis J01.10 Sinusitis location: frontal Chronicity: acute Recurrence: non-recurrent
[2024-08-04 15:03] VITALS: BP 126/80; PULSE 88; TEMP 36.9; O2SAT 98
== END 2024-08-04 15:12 | disposition home or self-care (01) ==
PROVIDERS: PCP Internal Medicine; Visit Provider Physician Assistant
DX: J01.10 Acute frontal sinusitis, unspecified (principal)

== ENCOUNTER → 2024-08-04 14:10 | Outpatient (BNVA) | payer OTHER, SELFPAY | PROVIDERS: PCP Internal Medicine | DX: J01.10 Acute frontal sinusitis, unspecified (principal) | CPT/HCPCS: 99212 ==

== ENCOUNTER 2024-10-05 14:14 | Outpatient (AMB) | payer OTHER, SELFPAY ==
--- NOTE | 2024-10-05 14:21 | AM.OFFWIN_ITS ---
Intake Vital Signs 10/05/24 14:22 Weight 148 lb BP 120/78 Blood Pressure Location Lt brachial Position Sitting Pulse 68 Pulse Source Pulse Oximeter Pulse Oximetry (%) 94 Oxygen Delivery Method Room Air Intake Visit Reasons: EP-lt arm & back rash, Intake Note: Patient here for left arm rash and on back that started off on friday. Patient Tobacco Use Status: Current someday Tobacco user Allergies citalopram Adverse Reaction (Unknown, Verified 10/05/24 14:23) palpitation and unable to sleep Do you need a note to return to daycare/school/sports/work: Yes HPI HPI Comments History of Present Illness Details This is a 39-year-old female with a past medical history of asthma presenting for evaluation of a painful rash on her left arm that she first noted on Friday. Patient states that she initially felt a tingling and burning sensation on her left arm, extending from her neck to her left wrist on Friday and then on Friday she noted the beginning of a rash on her left upper arm that has been spreading since that time. Patient has not taken any medication for treatment of her discomfort. [facility] Medical History (Updated 10/05/24 @ 14:45 by Maritza Alonso PA-C) Difficulty swallowing Nasal congestion Generalized anxiety disorder Mild intermittent asthma Food allergy Allergic rhinitis Asthma Surgical History History of section Family History Father Diabetes mellitus Fibromyalgia Mother Depression Maternal Grandfather Unknown family medical history Maternal Grandmother Alzheimer's disease Paternal Grandfather No problems noted. Paternal Grandmother Diabetes mellitus Substance use disorder Mental health disorder Brother No problems noted. Brother No problems noted. Brother No problems noted. Brother No problems noted. Daughter No problems noted. Daughter No problems noted. Daughter No problems noted. Maternal Uncle Substance use disorder Mental health disorder Maternal Uncle Substance use disorder Mother Mental health disorder Social History Housing: House Patient Tobacco Use Status: Current someday Tobacco user Cigarettes Per Day: 2 e-Cigarette/Vaping Use: Never Used Substance Use Type: Marijuana service: No Current occupational status: employed Cognitive needs: No Hearing needs: No Vision needs: No Review of Systems Const All systems reviewed & are unremarkable except as noted in HPI and below Reports as per HPI, Denies chills, Denies fatigue and Denies fever(s) Eyes Reports no additional complaints ENT Reports no additional complaints Card Reports no additional complaints Resp Reports no additional complaints GI Reports no additional complaints Reports no additional complaints Musc Reports no additional complaints Skin/Breast Reports as per HPI Neuro Reports no additional complaints Psych Reports no additional complaints Endo Reports no additional complaints and Denies fatigue Dinh/Lymph Reports no additional complaints Aller/Immun Reports no additional complaints Physical Exam Vital Signs: Last Vital Signs Pulse 68 10/05/24 14:22 BP 120/78 10/05/24 14:22 Pulse Ox 94 10/05/24 14:22 Oxygen Delivery Method Room Air 10/05/24 14:22 Const General: cooperative, healthy appearing, comfortable, no acute distress, well developed, alert and awake; No acute distress or ill appearing Nutritional Appearance: well nourished Orientation/consciousness: patient oriented x3 Limitations: no limitations Skin Other: There are grouped vesicles on an erythematous base extending from the left deltoid down the left arm, intermittently, with lesions noted on the left 5th digit. No evidence of a secondary cellulitis. Neuro General: patient oriented x3 Extrem Other: Passive ROM intact left upper extremity. Psych Appearance: grossly normal Mental Status: mental status grossly normal Insight: Good insight present (Psych) Judgement: Good judgement present (Psych) Assessment & Plan Assessment & Plan (1) Herpes zoster: Comment: The patient's history coupled with her examination is classic for a herpes zoster eruption. Patient will be discharged home with Valtrex and ibuprofen. Code(s): B02.9 - Zoster without complications Qualifiers: Herpes zoster complications: without complications Qualified Code(s): B02.9 - Zoster without complications Plan: Valtrex 1 g t.i.d. x7 days, ibuprofen 800 mg q.8 hours p.r.n.. Medications: New valacyclovir (Valtrex) 1,000 mg PO TID 21 tabs 0RF ibuprofen 800 mg PO Q8H PRN 30 tabs 0RF pain Coding Level of Care Code Est Pt Level 3 (94086) Diagnoses Herpes zoster without complication B02.9 Herpes zoster complications: without complications Time Spent (min) 20
[2024-10-05 14:22] VITALS: BP 120/78; PULSE 68; O2SAT 94
--- OUTSIDE RECORDS SUMMARY | 2024-10-05 17:05 | XMS_ITS | Data Portability ---
Author Organization [facility], [address] Address [address] [place] [address] Assessment No assessment recorded. Plan of Treatment Reminders Order Date Submit Date Provider Last Modified By Organization Details Last Modified Time Details Appointments None recorded. Lab SARS CoV 2 (COVID-19) Ag, QL, IA, upper respiratory specimen 2023 024 [facility] [address] [address], [address] [place], [address], 4 12:46:55 rapid flu (A+B) 2023 024 [facility] [address] [address], [address] [place], [address], 4 12:46:53 Referral None recorded. Procedures None recorded. Surgeries None recorded. Imaging None recorded. Medication Orders prednisone 20 mg tablet 2023 024 [facility]2339, [address] [place] [address], [address], 4 14:49:01 albuterol sulfate HFA 90 mcg/actuati on aerosol inhaler 2023 024 [facility], [address] [place] [address], [address], 4 14:49:00 benzonatate 200 mg capsule 2023 024 [facility] #2331, [facility] [place], [address], 4 14:49:00 Allergy Relief (fluticason e) 50 mcg/actuati on nasal spray,suspe nsion 2023 [facility], [address] [facility], [place], [address], 4 14:49:01 fexofenadin e-pseudoeph edrine ER 180 mg-240 mg tablet,ext. release 24 hr 2023 [facility], [address] [facility], [place], [address], 4 14:38:11 Allergy Relief (fluticason e) 50 mcg/actuati on nasal spray,suspe nsion 2023 [facility], [address] [facility], [place], [address], 4 14:38:13 Patient TargetsNo targets recorded. Patient Instructions Encounter Date Encounter Id Patient Instructions Last Modified By Organization Details Last Modified Time 07/03/2023 [id number] coronavirus (covid-19): care instructions Not available 07/03/2023 [...] care for yourself at home? Take an pvlt-fpq-tozceex pain medicine. Avoid Ibuprofen, Aleve and Aspirin if . If the doctor prescribed antibiotics, take them as directed. Do not stop taking them just because you feel better. You need to take the full course of antibiotics. Be careful when taking mhcn-tdi-acmdwwu cold or influenza (flu) medicines and Tylenol [...] nose drops at a grocery store or [employer]. Or you can make your own at [...] ve Not Available [address] [place], [address], 07/03/2023 12:25:22 07/03/19 24 07/03/2023 rapid flu (A+B) Unknown Analyte negati ve Not Available [address] [place], [address], 07/03/2023 12:25:22 07/03/19 24 07/03/2023 SARS CoV 2 (COVI D-19) Ag, QL, IA, upper respi rator y speci men Unknown Analyte positi ve Not Available [address] [place], [address], 07/03/2023 12:25:13 07/03/19 24 07/03/2023 SARS CoV 2 (COVI D-19) Ag, QL, IA, upper respi rator y speci men Unknown Analyte yes Not Available [address] [place] [address] [address] [place], [address], 07/03/2023 12:25:13 Result Notes None recorded. Problems Name Problem SNOMED Code Status Onset Date Resolution Date Notes Provider Name and Address Organization Details Recorded Time Asthma 775352301 Active [facility] Cueto - [facility] 07/03/2023 12:24:20 Problem Notes None recorded. Medical Equipment None Reported. Allergies Allergen ID Allergen Name Allergen Category Reaction Reaction Severity Criticality Documentation Date Start Date Code Code System Note Provider Name and Address Organization Details Recorded Time 977022 ethinyl estradiol / levonorge strel medicatio n Not available Not available Not available 09/21/2023 58447 8 Rx[facility] Denise reddy [facility] - [facility] [...] Updated DateTime 4 154.94 cm 28.9 kg/m2 48389.6 3 g 97.6 [degF] 18 /min 101 [...] Updated DateTime 4 154.94 cm 28.9 kg/m2 30316.6 3 g 98.3 [degF] 17 /min 100 [...] Had A Flu Shot This Season? Yes [email or web address] Information not available 07/03/2023 Have You Had Direct Contact, Or Contact During Intimacy, With Monkeypox Rash, Scabs, Or Body Fluids From A Person With Monkeypox? No [email or web address] Information not available 07/03/2023 What Was The [...] SNOMED-CT Code Diagnosis ICD10 Code Diagnosis Note [id number] [address] [place] [address] 03/27/2018 13:09:07 03/27/2018 13:41:16 [id number] [address] [place] [address] 09/26/2017 15:18:07 09/26/2017 16:33:20 [id number] [address] [place] [address] 01/11/2019 14:45:05 01/11/2019 15:04:31 [id number] [address] [place] [address] 09/04/2018 12:43:25 09/04/2018 13:29:06 [id number] [address] [place] [address] 11/18/2017 12:30:30 11/18/2017 13:28:08 [id number] [address] [place] [address] 12/09/2018 12:18:10 12/09/2018 14:18:48 [id number] [place] [address] [place] [address] 07/03/2023 11:30:05 07/03/2023 12:53:43 Exposure to SARS-CoV-2 163329759 Z20.822 COVID-19 722097594 U07.1 Acute sinusitis 06610647 J01.90 [id number] Max Sanders NP [address] [place] [address] 09/21/2023 14:14:21 09/21/2023 14:51:01 Acute bronchitis 39441129 J20.9 Acute bronchitis is a common clinical [...] acute bronchitis is a national and internatio [facility] health care priority. In most patients, the [...] Jernigan Member ID Guarantor Name 07/03/2023 1 [facility] [employer] ([facility]) JEREMIAS Shea [id number] Tomasz Shea 09/21/2023 1 [facility] [employer] ([facility]) JEREMIAS Shea [id number] Tomasz Shea Notes Date Note Type Note [...] Sanders NP [address] [place], [address], PA - [facility] 07/03/2023 12:51:58 09/21/2023 [...] Sanders NP [address] [place], [address], [place] - [facility] 09/22/2023 09:24:48 OBGyn Episode No OBEpisode recorded.
--- OUTSIDE RECORDS SUMMARY | 2024-10-05 17:05 | XMS_ITS | Clinical Summary ---
Author Organization [facility] it Address [address] [place] [address] Care Team Providers Care Stave Planer Tender Name Role Phone Natan Jeong MD Primary Care Provider Surgical History Surgery Date Site/Laterality Comments SECTION PROCEDURE: DE DELIVERY ONLY ESOPHAGOGASTRODUODENOSCOPY 05/08/10 PROCEDURE: DE ESOPHAGOGASTRODUODENOSCOPY TRANSORAL DIAGNOSTIC; COMMENT: normal Medical History [...] COVID-19 Vaccine ( season) 2024 Influenza Vaccine (Season Ended) 2025 02/22/2011, 06/13/2010, 03/28/2009, Additional history exists HIB Vaccines [...] age to complete this topic Meningococcal B Vaccine Aged Out No l onger eligible based on patient's age to complete this topic RSV Immunization Patients Under 20 months Aged Out No longer eligible based on patient's age to complete this topic Varicella Vaccines Aged Out No longer eligible based on patient's age to complete this topic Care Teams Stave Planer Tender Relationship Specialty Start Date End Date Natan Jeong MD [address] [place] PCP - General Internal Medicine 03/31/13
== END 2024-10-05 14:50 | disposition home or self-care (01) ==
PROVIDERS: PCP Internal Medicine; Visit Provider Physician Assistant
DX: B02.9 Zoster without complications (principal)

== ENCOUNTER → 2024-10-05 14:14 | Outpatient (BNVA) | payer OTHER, SELFPAY | PROVIDERS: PCP Internal Medicine; Visit Provider Physician Assistant | DX: B02.9 Zoster without complications (principal) | CPT/HCPCS: 99212 ==

== ENCOUNTER 2025-06-01 14:59 | Outpatient (AMB) | payer OTHER, SELFPAY ==
--- NOTE | 2025-06-01 15:08 | MHC.PC.OV ---
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 Tnt Required: No Is last menstrual period known: No Post menopausal: No Patient : No Allergies citalopram Adverse Reaction (Unknown, Verified 06/01/25 15:28) palpitation and unable to sleep Medication List - Last Reconciled 06/01/25 by Luana Nava MD albuterol sulfate 90 mcg/actuation 2 puffs inhalation QID PRN albuterol sulfate 2.5 mg (3 mL) inhalation QID PRN budesonide-formoterol 160-4.5 mcg/actuation (Symbicort) 2 puffs inhalation Q12H dicyclomine 20 mg PO BID 3 months ibuprofen 800 mg PO Q8H PRN montelukast 10 mg PO DAILY nebulizers Use as directed every 4 hours as needed for episodes of wheezing and bronchospasm valacyclovir (Valtrex) 1,000 mg PO TID Tobacco use date assessed: 06/01/25 Dental Screening Dental Screen Date: 06/01/25 Did you have a dental visit in the last 12 months?: Yes Did you have a dental problem in the last 6 months where you did not have access to dental care?: No Was dental information given to patient?: Patient has dentist HPI PE HPI Details 39-year-old lady, current light cigarette smoker not ready to quit, with a history mild intermittent asthma, allergic rhinitis, here today for her physical exam. Overdue for her breast cancer screening, last mammogram was done in 2023 with benign findings. Overdue for her cervical cancer screening, previously was being seen at [facility] clinic Has mild intermittent asthma, previously on Symbicort but ran out of her medications and has only been using albuterol inhaler, which she does not need to use frequently Has allergic rhinitis, currently taking montelukast 10 mg daily . Complains of frequent anxiety attacks and depression, previously was on buspirone, which made her more depressed, and was on escitalopram and took hydroxyzine which caused severe GI upset. Has been having difficulty initiating sleep. Has tried trazodone in the past which has not helped, tried Unisom [id number] and melatonin all of which were ineffective Complains of frequent heartburn symptoms, triggered by almost anything she eats, and postprandial epigastric pain. This has been present now for the last several months and seems to be getting worse. There were times that she has to vomit to make herself feel better. He has taken [id number] Pepcid AC, Tums, omeprazole all of which has not helped. Has had an upper endoscopy several years ago at [place], results of which she could not recall. Takes dicyclomine 20 mg twice a day as needed for treatment of irregular bowel movements. [facility] Medical History History of herpes zoster Heartburn Postprandial epigastric pain Nasal congestion Generalized anxiety disorder Mild intermittent asthma Food allergy Allergic rhinitis Surgical History History of section Family History Father Diabetes mellitus Fibromyalgia Mother Depression Maternal Grandfather Unknown family medical history Maternal Grandmother Alzheimer's disease Paternal Grandfather No problems noted. Paternal Grandmother Diabetes mellitus Substance use disorder Mental health disorder Brother No problems noted. Brother No problems noted. Brother No problems noted. Brother No problems noted. Daughter No problems noted. Daughter No problems noted. Daughter No problems noted. Maternal Uncle Substance use disorder Mental health disorder Maternal Uncle Substance use disorder Mother Mental health disorder Social History Housing: House Patient Tobacco Use Status: Current someday Tobacco user Cigarettes Per Day: 2 e-Cigarette/Vaping Use: Never Used Substance Use Type: Marijuana service: No Current occupational status: employed Cognitive needs: No Hearing needs: No Vision needs: No Questionnaire PHQ-9 Over the last 2 weeks, how often have you been bothered by any of the following problems? 1. Little interest or pleasure in doing things: more than half the days 2. Feeling down, depressed, or hopeless: more than half the days 3. Trouble falling or staying asleep, or sleeping too much: nearly every day 4. Feeling tired or having little energy: several days 5. Poor appetite or overeating: several days 6. Feeling bad about yourself - or that you are a failure or have let yourself or your family down: several days 7. Trouble concentrating on things, such as reading the newspaper or watching television: several days 8. Moving or speaking so slowly that other people could have noticed. Or the opposite - being so fidgety or restless that you have been moving around a lot more than usual: several days 9. Thoughts that you would be better off or of hurting yourself in some way: not at all Total score: 12 Depression Screening Interpretation: Positive (Declines starting any medication, due to sensitive stomach, but would like to sees therapist, referred to to mental health coordinator to assist in getting an appointment) Depression Screening Follow-up: Existing condition and Community Mental Health Worker F/U Depression Screening Done: Yes 72989 - PHQ-9 Billing: Yes Source: Developed by Drs. Corbin Segal, Gemma Jamil, Fletcher Castro and colleagues, with an educational bennett from [employer]. Thrive Questionnaire Date Thrive assessed: 06/01/25 I am a: Patient What is your living situation today?: I have a steady place to live Within the past 12 months, did the food you bought not last and you didn't have the money to get more?: Never true Within the past 12 months, did you worry whether your food would run out before you got money to buy more?: Never true Do you have trouble paying for medicines?: No Do you have trouble getting transportation to medical appointments?: No Do you have trouble paying your heating and electricity bill?: No Do you have trouble taking care of your child, family member or friend?: No Do you have trouble with day-to-day activities such as bathing, preparing meals, shopping, managing finances, etc.?: No Are you currently unemployed and looking for a job?: No Are you interested in more education?: No Please select the resources that you would like help with: None Currently or been in a relationship where the following occur: No concerns reported THRIVE Score: 0 AUDIT C Alcohol Use Questionnaire (AUDIT-C) 1. How often do you have a drink containing alcohol?: Never Total Score: 0 BRYANNA-7 AMB Questionnaire BRYANNA-7 Date BRYANNA - 7 assessed: 06/01/25 Feeling nervous, anxious, or on edge: 2 = More than half the days Not being able to stop or control worryin = More than half the days Worrying too much about different things: 2 = More than half the days Trouble relaxin = Several days Being so restless that it is hard to sit still: 1 = Several days Becoming easily annoyed or irritable: 1 = Several days Feeling afraid as if something awful might happen: 1 = Several days Total BRYANNA-7 score (0-4 normal; 5-9 mild; 10-14 moderate; 15-21 severe): 10 Source: Developed by Drs. Corbin Segal, Gemma Jamil, Fletcher Castro and colleagues, with an educational bennett from [employer]. BRYANNA-7 Assessment Billing BRYANNA-7 Assessment Tool: BRYANNA-7 Assessment 60909 Review of Systems Const Reports fatigue and Reports headache(s) Eyes Details: [facility] Denies change in vision ENT Denies dizziness, Reports headache(s), Denies hoarseness and Denies epistaxis Card Denies chest pain, Denies rapid heart rate, Denies irregular heart rhythm and Denies dyspnea Resp Denies chest congestion, Denies cough, Denies dyspnea and Denies wheezing GI Reports as per HPI, Denies melena and Denies hematochezia Reports no additional complaints Musc Reports no additional complaints Skin/Breast Denies breast pain and Denies breast mass Neuro Denies dizziness and Reports headache(s) Psych Reports as per HPI Endo Reports fatigue Dinh/Lymph Reports no additional complaints Aller/Immun Denies wheezing Physical exam (Primary Care) Vital Signs: Last Vital Signs Temp 98.2 F 06/01/25 15:14 Pulse 80 06/01/25 15:14 Resp 16 06/01/25 15:14 BP 100/62 06/01/25 15:14 Pulse Ox 99 06/01/25 15:14 Oxygen Delivery Method Room Air 06/01/25 15:14 BMI result Body Mass Index 27.4 Tobacco/Smoking Status: Tobacco use Status Tobacco use date assessed 06/01/25 06/01/25 15:11 Patient Tobacco Use Status Current someday Tobacco 06/01/25 15:08 e-Cigarette/Vaping Use Never Used 06/01/25 15:08 PHQ-9: PHQ-9 Score PHQ-9: Total score 06/01/25 16:07 Depression Screening Interpretation: Positive (Declines starting any medication, due to sensitive stomach, but would like to sees therapist, referred to to mental health coordinator to assist in getting an appointment) Depression Screening Follow-up: Existing condition and Community Mental Health Worker F/U Thrive Assessment: Date of Thrive Assessment Date Thrive assessed 06/01/25 06/01/25 16:00 Currently or been in a relationship where the following occur: No concerns reported Advance Care Planning discussion: Completed/Scanned Date of discussion: 06/01/25 Who was present: Patient Forms completed: Health Care Proxy Time spent: 16-45 minutes Actual minutes spent: 3 Const General: no acute distress and alert Nutritional Appearance: average body habitus Orientation/consciousness: patient oriented x3 HENMT Ears: hearing grossly normal bilaterally, external ears normal, TM's normal bilaterally and EAC's normal General nose exam: Normal external nose present Mouth: oropharynx normal and moist mucous membranes Eyes General: appearance normal, both eyes and all related structures Neck Neck: Yes full ROM, Yes no lymphadenopathy and Yes supple Chest Breast/axilla palpation: normal palpation of the breasts Resp Effort & Inspection: normal respiratory effort and able to speak in complete sentences Auscultation: clear to auscultation bilaterally Cardio Other: S1-S2 present regular rate and rhythm GI Palpation (GI): Soft to palpation, Tenderness to palpation present (GI) in the epigastrum, Guarding due to palpation present (GI) and no masses Auscultation: Hypoactive bowel sounds present General: Yes no CVA tenderness Back/Spine/Pelvis Back: no CVA tenderness and No back tenderness Skin General skin exam: no rashes or lesions noted Neuro General: patient oriented x3 Extrem General: Yes full ROM, Yes no joint enlargement, Yes no clubbing, cyanosis or edema, Yes no calf tenderness and Yes normal gait Psych Appearance: grossly normal and well kempt Mental Status: mental status grossly normal Speech and movement: Normal speech and movement present Affect: normal affect Office Procedures Flu Questionnaire Does the patient have a severe egg allergy?: No Does the patient have severe life threatening allergies?: No Does the patient have a fever or illness today?: No Has the patient ever had Guillain-[place] Syndrome?: No Has the patient ever had any past reaction to a flu shot?: No Immunizations Fluarix [id number] (PF) 45 mcg (15 mcg x 3)/0.5 mL IM syringe Performing Provider: Luana Nava MD Performing Location: [facility] [place] [facility] Administered by: Lela Hart CMA on 06/01/25 16:06 Dose Route Admin Location Dispensed Lot Number Expiration Date NDC 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 VIS Given Date VIS Provided VIS Publication Date 06/01/25 Single Vaccine 24 Eligibility Eligibility Date Funding Source Not [facility] Eligible 06/01/25 Private Coding Level of Care Code Est Pt Prev Care 40-64y(89692) Diagnoses Annual visit for general adult medical examination with abnormal findings Z00.01 Postprandial epigastric pain R10.13 Heartburn R12 Generalized anxiety disorder F41.1 Allergic rhinitis, unspecified seasonality, unspecified trigger J30.9 Allergic rhinitis seasonality: unspecified Allergic rhinitis trigger: unspecified Insomnia, unspecified type G47.00 Insomnia type: unspecified Mild intermittent asthma without complication J45.20 Asthma complication type: uncomplicated Advance directive discussed with patient Z71.89 Additional Codes BRYANNA-7 Assessment Billing - BRYANNA-7 Assessment Tool: BRYANNA-7 Assessment 75697 ([id number]) PHQ-9 - 01179 - PHQ-9 Billing: Yes ([id number]) Vital Signs *Quality* - Advance Care Planning discussion: Completed/Scanned ([id number]) Vital Signs *Quality* - Time spent: 16-45 minutes ([id number]) Assessment & Plan Assessment & Plan (1) Annual visit for general adult medical examination with abnormal findings: Code(s): Z00.01 - Encounter for general adult medical examination with abnormal findings Plan: Will check appropriate labs. Recommended dental visit every 6 months and regular eye exams, at least every 2 years. Take adequate calcium in diet and vitamin-D 3 at 2000 IU per cap once a day, in addition to weight-bearing exercises to help maintain good muscle tone and weight control. Instructed to do self-breast exam, and recommended to get yearly mammogram, ordered today. Referred to [facility] [place] for her cervical cancer screening/Pap and pelvic exam . Up-to-date with her pneumonia vaccine and Tdap, flu vaccine given today. Patient declined getting COVID booster (2) Postprandial epigastric pain: Code(s): R10.13 - Epigastric pain Category: Medical Plan: Stat upper GI series ordered, empirically placed on pantoprazole 40 mg 1 capsule once a day before a meal. Avoidance of triggers for heartburn see her back for follow-up after test done (3) Heartburn: Code(s): R12 - Heartburn Category: Medical Plan: Stat upper GI series ordered, empirically placed on pantoprazole 40 mg 1 capsule once a day before a meal. Avoidance of triggers for heartburn see her back for follow-up after test done (4) Generalized anxiety disorder: Code(s): F41.1 - Generalized anxiety disorder Category: Medical Plan: patient reports feeling sad and depressed. A previous trial of buspirone was discontinued due to nausea. Given her sensitive stomach, she does not wish to start any new medications at this time. She expressed a desire to see a therapist, and a referral to health coordinator, to assist in getting an appointment to get therapy (5) Allergic rhinitis: Code(s): J30.9 - Allergic rhinitis, unspecified Category: Medical Qualifiers: Allergic rhinitis seasonality: unspecified Allergic rhinitis trigger: unspecified Qualified Code(s): J30.9 - Allergic rhinitis, unspecified Plan: Continue montelukast (6) Insomnia: Code(s): G47.00 - Insomnia, unspecified Qualifiers: Insomnia type: unspecified Qualified Code(s): G47.00 - Insomnia, unspecified Plan: Prescription sent for eszopiclone 2 mg per tablet to take 1 tablet at bedtime as needed for acute episodes of insomnia (7) Mild intermittent asthma: Code(s): J45.20 - Mild intermittent asthma, uncomplicated Category: Medical Qualifiers: Asthma complication type: uncomplicated Qualified Code(s): J45.20 - Mild intermittent asthma, uncomplicated Plan: Refill sent for Symbicort, lesion every 12 hours, rinse mouth after use. Has albuterol inhaler to use as needed for episodes of bronchospasm wheezing. (8) Advance directive discussed with patient: Code(s): Z71.89 - Other specified counseling Plan: Initiated the conversation about Advanced Directives. Advanced Directives help patients prepare for current and future decisions about their medical treatment and place of care. Discussed with patient that it is a process where a patients current condition and prognosis are reviewed, their wishes for information regarding their illness are elicited, and likely medical dilemmas are presented and options discussed. Healthcare proxy form completed today. The form can be amended as needed, reviewed yearly and make changes as needed Orders: Orders [place] upper GI series Today R10.13 - Epigastric pain, R12 - Heartburn MM tomosynthesis screening BI Today Z12.31 - Encounter for screening mammogram for malignant neoplasm of breast Aspartate Amino Transferase Today F41.1 - Generalized anxiety disorder, J45.20 - Mild intermittent asthma, uncomplicated, R10.13 - Epigastric pain, R12 - Heartburn, Z00.01 - Encounter for general adult medical examination with abnormal findings, Z13.1 - Encounter for screening for diabetes mellitus, Z13.220 - Encounter for screening for lipoid disorders Complete Blood Count Auto Diff Today F41.1 - Generalized anxiety disorder, J45.20 - Mild intermittent asthma, uncomplicated, R10.13 - Epigastric pain, R12 - Heartburn, Z00.01 - Encounter for general adult medical examination with abnormal findings, Z13.1 - Encounter for screening for diabetes mellitus, Z13.220 - Encounter for screening for lipoid disorders Vitamin D 25-OH Total Today F41.1 - Generalized anxiety disorder, J45.20 - Mild intermittent asthma, uncomplicated, R10.13 - Epigastric pain, R12 - Heartburn, Z00.01 - Encounter for general adult medical examination with abnormal findings, Z13.1 - Encounter for screening for diabetes mellitus, Z13.220 - Encounter for screening for lipoid disorders Alanine Aminotransferase Today F41.1 - Generalized anxiety disorder, J45.20 - Mild intermittent asthma, uncomplicated, R10.13 - Epigastric pain, R12 - Heartburn, Z00.01 - Encounter for general adult medical examination with abnormal findings, Z13.1 - Encounter for screening for diabetes mellitus, Z13.220 - Encounter for screening for lipoid disorders Lipid Panel Today F41.1 - Generalized anxiety disorder, J45.20 - Mild intermittent asthma, uncomplicated, R10.13 - Epigastric pain, R12 - Heartburn, Z00.01 - Encounter for general adult medical examination with abnormal findings, Z13.1 - Encounter for screening for diabetes mellitus, Z13.220 - Encounter for screening for lipoid disorders Basic Metabolic Panel Fasting Today F41.1 - Generalized anxiety disorder, J45.20 - Mild intermittent asthma, uncomplicated, R10.13 - Epigastric pain, R12 - Heartburn, Z00.01 - Encounter for general adult medical examination with abnormal findings, Z13.1 - Encounter for screening for diabetes mellitus, Z13.220 - Encounter for screening for lipoid disorders Influenza [id number] Immunization Today Z23 - Encounter for immunization Referrals [employer] AGENT Referral Z12.4 - Encounter for screening for malignant neoplasm of cervix Medications: New pantoprazole 40 mg PO DAILY 30 tabs 3RF R10.13 - Epigastric pain, R12 - Heartburn eszopiclone 2 mg PO BEDTIME PRN 30 tabs 0RF insomnia Refilled albuterol sulfate 90 mcg/actuation 2 puffs inhalation QID PRN 8.5 grams 2RF shortness of breath or wheezing budesonide-formoterol 160-4.5 mcg/actuation (Symbicort) 2 puffs inhalation Q12H 10.2 grams 5RF J45.20 - Mild intermittent asthma, uncomplicated
[2025-06-01 15:14] VITALS: BP 100/62; PULSE 80; RESP 16; TEMP 36.8; O2SAT 99; BMI 27.4
--- OUTSIDE RECORDS SUMMARY | 2025-06-01 19:59 | XMS_ITS | Data Portability ---
Author Organization [facility], [address] Address [address] [place] [address] Assessment No assessment recorded. Plan of Treatment Reminders Order Date Submit Date Provider Last Modified By Organization Details Last Modified Time Details Appointments None recorded. Lab SARS CoV 2 (COVID-19) Ag, QL, IA, upper respiratory specimen 2023 024 [facility], [address] [place], [address], 4 12:46:55 rapid flu (A+B) 2023 024 [facility], [address] [place], [address], 4 12:46:53 Referral None recorded. Procedures None recorded. Surgeries None recorded. Imaging None recorded. Medication Orders prednisone 20 mg tablet 2023 024 [facility]2339, [address] [place] [address], [address], 4 14:49:01 albuterol sulfate HFA 90 mcg/actuati on aerosol inhaler 2023 024 [facility]2339, [facility] [place], [address], 4 14:49:00 benzonatate 200 mg capsule 2023 024 [facility]2339, [address] [place], [address], 4 14:49:00 Allergy Relief (fluticason e) 50 mcg/actuati on nasal spray,suspe nsion 2023 [facility] [address] [facility], [place], [address], 4 14:49:01 fexofenadin e-pseudoeph edrine ER 180 mg-240 mg tablet,ext. release 24 hr 2023 024 [facility]2339, [address] [place] [address], [place], [address], 4 14:38:11 Allergy Relief (fluticason e) 50 mcg/actuati on nasal spray,suspe nsion 2023 024 [facility], [address] [place] [address], [address], 4 14:38:13 Patient TargetsNo targets recorded. Patient Instructions Encounter Date Encounter Id Patient Instructions Last Modified By Organization Details Last Modified Time 07/03/2023 [id number] coronavirus (covid-19): care instructions Not available 07/03/2023 [...] care for yourself at home? Take an lzva-wqo-giutnho pain medicine. Avoid Ibuprofen, Aleve and Aspirin if . If the doctor prescribed antibiotics, take them as directed. Do not stop taking them just because you feel better. You need to take the full course of antibiotics. Be careful when taking uwjm-mup-ssrkscz cold or influenza (flu) medicines and Tylenol [...] nose drops at a grocery store or [employer] [employer]. Or you can make your own at [...] (A+B) Unknown Analyte negati ve Not Available [address] [place] [address] [address] [place], [address], 07/03/2023 12:25:22 07/03/19 24 07/03/2023 rapid flu (A+B) Unknown Analyte negati ve Not Available [address] [place] [address] [address] [place], [address], 07/03/2023 12:25:22 07/03/19 24 07/03/2023 SARS CoV 2 (COVI D-19) Ag, QL, IA, upper respi rator y speci men Unknown Analyte positi ve Not Available [address] [place], [address], 07/03/2023 12:25:13 07/03/19 24 07/03/2023 SARS CoV 2 (COVI D-19) Ag, QL, IA, upper respi rator y speci men Unknown Analyte yes Not Available [address] [place] [address] [address] [place], [address], 07/03/2023 12:25:13 Result Notes None recorded. Problems Name Problem SNOMED Code Status Onset Date Resolution Date Notes Provider Name and Address Organization Details Recorded Time Asthma 259297771 Active GEOVANI Cueto - [facility] 07/03/2023 12:24:20 Problem Notes None recorded. Medical Equipment None Reported. Allergies Allergen ID Allergen Name Allergen Category Reaction Reaction Severity Criticality Documentation Date Start Date Code Code System Note Provider Name and Address Organization Details Recorded Time 879804 ethinyl estradiol / levonorge strel medicatio n Not available Not available Not available 09/21/2023 99326 8 [facility]ise reddy [facility] - [facility] [...] in the morning for 5 days, for inflammat ion. 2023 active Not Available Not Available Not Avai lable albuterol sulfate HFA 90 mcg/actuati on aerosol inhaler Inhale 2 puffs every 4 hours by inhalatio n route as needed for 10 days, for wheezing, cough. 2023 active Not Available Not Available Not Avai lable fluticasone propionate 50 mcg/actuati on nasal spray,suspe nsion INSTILL 1 SPRAY INTO EACH NOSTRIL ONCE DAILY FOR NASAL CONGESTIO N DIRECTED active Not Available Not Available No t Available fexofenadin e-pseudoeph edrine ER 180 mg-240 mg tablet,ext. release 24 hr Take 1 tablet every day by oral route in the evening for 10 days. 09/20 completed Not Available Not Available Not Available albuterol sulfate active Not Available Not Available Not Available Vitals Date Recorded Body height Body mass index (BMI) Body weight Body temperature Respiratory rate Heart rate Oxygen saturation Systolic And Diastolic Provider Name and Address Organization Details Last Updated DateTime 4 154.94 cm 28.9 kg/m2 86769.6 3 g 97.6 [degF] 18 /min 101 /min 96 % 106/67 mm[Hg] Minal Mojica PA - [facility] 4 12:22:51 Date Recorded Body height Body mass index (BMI) Body weight Body temperature Respiratory rate Heart rate Oxygen saturation Systolic And Diastolic Provider Name and Address Organization Details Last Updated DateTime 4 154.94 cm 28.9 kg/m2 88466.6 3 g 98.3 [degF] 17 /min 100 /min 98 % 100/67 mm[Hg] Denise araujo PA - [facility] 14:36:00 Social History Question Answer Notes LastModified by Organizat ion Details LastModified Time Tobacco Smoking Status Current Every Day Smoker GEOVANI Cueto - [facility] 07/03/2023 12:24:50 Have You Had A Flu Shot This Season? Yes [email or web address] Information not available 07/03/2023 Have You Had Direct Contact, Or Contact During Intimacy, With Monkeypox Rash, Scabs, Or Body Fluids From A Person With Monkeypox? No Information not available 07/03/2023 What Was The Date Of Your Most Recent Tobacco Screening? 09/21/2023 Information not available 09/21/2023 Have You Recently Traveled Abroad? No [email or web address] Information not available 07/03/2023 Sex: Unknown Functional Status Question Answer Note LastModified by Organizat ion Details LastModified Time Do you use any illicit or recreational drugs? No [email or web address] Information not available 07/03/2023 What is your level of alcohol consumption? Occasional Information not available 09/21/2023 Mental Status None recorded. Family History Nothing Reported. Medical History No medical history recorded. Gynecological History Statement/Question Response Date of LMP 06/09/2023 Is there any chance of ? No LMP Definite Obstetrics History GPAL:G 0 P 0 0 0 0 Past Encounters Encounter ID Performer Location Encounter Start Date Encounter Closed Date Diagnosis/Indication Diagnosis SNOMED-CT Code Diagnosis ICD10 Code Diagnosis IMO Codes Diagnosis Note [id number] [facility] [address] [place] [address] 03/27/2018 13:09:07 03/27/2018 13:41:16 [id number] [address] [address] [facility] [address] [place] [address] 09/26/2017 15:18:07 09/26/2017 16:33:20 [id number] [address] [address] [address] [facility] [address] [place] [address] 01/11/2019 14:45:01/11/2019 15:04:31 [id number] [address] [place] [address] 09/04/2018 12:43:25 09/04/2018 13:29:06 [id number] [address] [facility] [place] [place] [address] 11/18/2017 12:30:30 11/18/2017 13:28:08 [id number] [address] [place] [address] 12/09/2018 12:18:10 12/09/2018 14:18:48 [id number] [place] [address] [place] [address] 07/03/2023 11:30:05 07/03/2023 12:53:43 Exposure to SARS-CoV-2 519102764 Z20.822 COVID-19 886942334 U07.1 Acute sinusitis 86972566 J01.90 [id number] [place] [facility] [address] [address] [place] [address] 09/21/2023 14:14:21 09/21/2023 14:51:01 Acute bronchitis 84041720 J20.9 Acute bronchitis is a common clinical [...] acute bronchitis is a national and internatio [facility] health care priority. In most [...] Recorded Advance Directives Directive None Recorded Payers Insurance Date Sequence Insurance Name Policy Number Policy Jernigan Covered Member ID Jernigan Member ID Guarantor Name 09/21/2023 1 [facility] Tomasz Shea [id number] Tomasz Shea Notes Date Note Type Note Provider Name and Address Organization Details Recorded Time 4 text/html Sinus Complaints UCReported by PatientHPIFor location, patient reportssinus pain,facial pain, andsinus pressure. For associated symptoms, patient reportsdifficulty breathing,post nasal drip,nasal passage blockage __, andcoughbut reportsno fever,no nausea or vomiting,no sore throat,no ear fullness,no nasal itching,no eye itching, andno dizziness. For quality, patient reportsworseningbut reportsminimal discomfortandclear. For context, patient reportsworse with environmental exposurebut reportsno recent upper respiratory infection,no recent sick contacts, andnot worse with seasonal allergen exposure. For onset/timing, patient reportsworse in amandworse in pm. For duration, patient reportsfrequent. For severity, patient reportsmoderate. For risk factors, patient reportsno current smoking or tobacco useandno history of nasal trauma. For alleviating factors, patient reportsoral steroids. For aggravating factors, patient reportsworse during an upper respiratory infection (a cold)andworse with excess fatigue. For prior treatment, patient reportsoral decongestant. Headache UCReported by Patient COVID-19 SymptomsReported by Patient Shortness of BreathReported by Patient Max Sanders NP [address] [place], [address], [place] - [facility] 07/03/2023 12:51:58 4 text/html Sinus Complaints UCReported by PatientHPIFor location, patient reportssinus pain,facial pain, andsinus pressure. For associated symptoms, patient reportsdifficulty breathing,post nasal drip,nasal passage blockage __, andcoughbut reportsno fever,no nausea or vomiting,no sore throat,no ear fullness,no nasal itching,no eye itching, andno dizziness. For quality, patient reportsworseningbut reportsminimal discomfortandclear. For context, patient reportsworse with environmental exposurebut reportsno recent upper respiratory infection,no recent sick contacts, andnot worse with seasonal allergen exposure. For onset/timing, patient reportsworse in amandworse in pm. For duration, patient reportsfrequent. For severity, patient reportsmoderate. For risk factors, patient reportsno current smoking or tobacco useandno history of nasal trauma. For alleviating factors, patient reportsoral steroids. For aggravating factors, patient reportsworse during an upper respiratory infection (a cold)andworse with excess fatigue. For prior treatment, patient reportsoral decongestant. Shortness of BreathReported by Patient Max Sanders NP [address] [place], [address], [place] - [facility] 09/22/2023 09:24:48 OBGyn Episode No OBEpisode recorded.
--- OUTSIDE RECORDS SUMMARY | 2025-06-01 19:59 | XMS_ITS | Clinical Summary ---
Author Organization [facility] Address [address] [place] [address] Phone Care Team Providers Care Nurse Coordinator Name Role Phone Physician, Pcp Unknown Primary Care Provider Joceline vailable Allergies No known active allergies Medications methocarbamoL (ROBAXIN) 500 mg tablet Take 1 tablet (500 mg total) by mouth 2 (two) times a day if needed for muscle spasms for up to 10 days. 20 tablet 03/08/2025 Active Encounters Date Type Department Care Team Description 03/08/2025 3:56 PM EDT - 03/08/2025 7:20 PM EDT Emergency [facility] Emergency [address] [place] [address] Nicci Manjarrez MD Chest pain, unspecified type (Primary Dx) Discharge Disposition: Home or Self Care from Last 3 Months Surgical History Surgery Date Site/Laterality Comments SECTION PROCEDURE: DC DELIVERY ONLY ESOPHAGOGASTRODUODENOSCOPY 05/08/10 PROCEDURE: DC ESOPHAGOGASTRODUODENOSCOPY TRANSORAL DIAGNOSTIC; COMMENT: normal Medical History [...] Years Used Date Smoking Tobacco: Former Cigarettes 0 Q uit: 01/14/2010 Smokeless Tobacco: Never Alcohol Use Standard Drinks/Week Comments Yes 0 (1 standard drink = 0.6 oz pur e alcohol) Comments Unknown Sex and Gender Information Value Date Recorded Sex Assigned at Not on file Legal Sex Female 5:42 PM EST Gender Identity Not on file Sexual Orientation Not on file Last Filed Vital Signs Vital Sign Reading Time Taken Comments Blood Pressure 110/68 03/08/2025 7:15 PM EDT Pulse 84 03/08/2025 7:15 PM EDT Temperature 36.5 C (97.7 F) 03/08/2025 7:15 PM EDT Respiratory Rate 18 03/08/2025 7:15 PM EDT Oxygen Saturation 98% 03/08/2025 7:15 PM EDT Inhaled Oxygen Concentration - - Weight 63.5 kg (140 lb) 03/08/2025 1:52 PM EDT Height 154.9 cm (5' 1 ) 03/08/2025 1:52 PM EDT Body Mass Index 26.45 03/08/2025 1:52 PM EDT Plan of Treatment Health Maintenance Due Date Last Done Comments Breast Cancer Screening 1985 Hepatitis B Vaccines (1 of 3 - 19+ 3-dose series) 10/03/2002 Cervical Cancer Screening: Pap Smear 10/03/2004 HPV Vaccines (3 - 3-dose series) 06/21/2007 02/13/2007, 12/19/2006 Pneumococcal Vaccine: Pediatrics (0 to 5 Years) and At-Risk Patients (6 to 49 Years) (2 of 2 - PCV) 07/29/2017 07/29/2016, 06/13/2010 HIV Screening 07/15/2023 Hepatitis C Screening 07/15/2023 Social Influencers of Health Screening 07/15/2023 Depression Screening 06/16/2024 COVID-19 Vaccine ( - season) 2025 02/28/2021 Influenza Vaccine (#1) 2025 3, 03/24/2017, 03/14/2016, Additional history exists DTaP,Tdap,and Td Vaccines (3 - Td or Tdap) 05/22/2026 05/22/2016, 07/07/2007 RSV Immunization Adult Patients (1 - 1-dose 75+ series) 10/03/2058 HIB Vaccines Aged Out No longer eligi [...] on patient's age to complete this topic Procedures Procedure Name Priority Date/Time Associated Diagnosis Comments ECG ANNOTATED 03/09/2025 XR CHEST 2 VIEWS STAT 03/08/2025 6:29 PM EDT TROPONIN I HIGH SENSITIVITY Timed 03/08/2025 5:44 PM EDT HCG, SERUM, QUALITATIVE STAT Add-on 03/08/2025 4:23 PM EDT CBC WITH AUTO DIFFERENTIAL STAT 03/08/2025 4:23 PM EDT B-TYPE NATRIURETIC PEPTIDE STAT 03/08/2025 4:23 PM EDT MAGNESIUM STAT 03/08/2025 4:23 PM EDT LIPASE STAT 03/08/2025 4:23 PM EDT COMPREHENSIVE METABOLIC PANEL STAT 03/08/2025 4:23 PM EDT CBC AND DIFFERENTIAL STAT 03/08/2025 4:23 PM EDT TROPONIN I HIGH SENSITIVITY Timed 03/08/2025 4:23 PM EDT ECG 12-LEAD STAT 03/08/2025 1:48 PM EDT from Last 3 Months Results * ECG-Annotated (03/09/2025) us Provider Onbase ECG ORDERABLES Final Result * XR Chest 2 Views (03/08/2025 6:29 PM EDT) Anatomical Region Laterality Modality Body Radiographic Joi ging 03/09/2025 8:17 AM EDT Impressions 03/09/2025 8:27 AM EDT FINDINGS/IMPRESSION: Lungs are clear. No pleural effusion or pneumothorax. Cardiac silhouette and bones are normal. -------- FINAL REPORT -------- Dictated By: RADHA TARIQ Dictated Date: 03/09/2025 08:17 ET Assigned Physician: RADHA TARIQ Reviewed and Electronically Signed By: RADHA TARIQ Signed Date: 03/09/2025 08:27 ET Workstation ID: [id number] Transcribed By: Self Edit Transcribed Date: 03/09/2025 08:17 ET Narrative 03/09/2025 8:27 AM EDT XR CHEST 2 VIEWS INDICATION: Chest pain TECHNIQUE: XR CHEST 2 VIEWS COMPARISON: 09/16/2023 Procedure Note Radha Tariq MD - 03/09/2025 XR CHEST 2 VIEWS INDICATION: Chest pain TECHNIQUE: XR CHEST 2 VIEWS COMPARISON: 09/16/2023 IMPRESSION: FINDINGS/IMPRESSION: Lungs are clear. No pleural effusion orpneumothorax. Cardiac silhouette and bones are normal. -------- FINAL REPORT -------- Dictated By: RADHA TARIQ Dictated Date: 03/09/2025 08:17 ET Assigned Physician: RADHA TARIQ Reviewed and Electronically Signed By: RADHA TARIQ Signed Date: 03/09/2025 08:27 ET Workstation ID: [id number] Transcribed By: Self Edit Transcribed Date: 03/09/2025 08:17 ET Nicci Manjarrez MD IMG XR PROCEDURES Final Result * Troponin I high sensitivity (03/08/2025 5:44 PM EDT) Only the most recent of2 resultswithin the time period is included. [facility] High Sensitivity Troponin I <3 <=54 ng/L LAB CHEMISTRY METHOD 03/08/2025 6:52 PM EDT [facility] Blood Venous blood specimen / Unknown Venipuncture / Unknown 03/08/2025 5:44 PM EDT 03/08/2025 6:23 PM EDT Narrative [facility] - 03/08/2025 6:52 PM EDT High levels of biotin in samples may falsely decrease hsTroponin values. Use caution when interpreting hsTroponin results in patients taking biotin who exhibit renal impairment (eGFR <60) or in patients taking more than 20 mg/day of biotin. us Nicci Manjarrez MD LAB BLOOD ORDERABLES Final Resul t [facility] [address] [place] [address], [place] [phone] * (ABNORMAL) CBC auto differential (03/08/2025 4:23 PM EDT) [facility] WBC 8.0 4.8 - 10.8 K/mcL LAB HEMETOLOGY METHOD 03/08/2025 4:38 PM EDT [facility] RBC 4.70 3.80 - 4.80 M/mcL LAB HEMETOLOGY METHOD 03/08/2025 4:38 PM EDT [facility] Hemoglobin 14.3 11.5 - 16.0 g/dL LAB HEMETOLOGY METHOD 03/08/2025 4:38 PM EDT [facility] Hematocrit 42.0 35.0 - 47.0 % LAB HEMETOLOGY METHOD 03/08/2025 4:38 PM EDT [facility] MCV 90.3 79.0 - 98.0 FL LAB HEMETOLOGY METHOD 03/08/2025 4:38 PM EDT [facility] MCH 30.8 27.0 - 32.0 pcg LAB HEMETOLOGY METHOD 03/08/2025 4:38 PM [facility] MCHC 34.0 32.0 - 37.0 g/dL LAB HEMETOLOGY METHOD 03/08/2025 4:38 PM [facility] RDW 12.6 11.0 - 15.0 % LAB HEMETOLOGY METHOD 03/08/2025 4:38 PM [facility] Platelets 253 130 - 400 K/mcL LAB HEMETOLOGY METHOD 03/08/2025 4:38 PM [facility] MPV 10.2 7.0 - 11.0 FL LAB HEMETOLOGY METHOD 03/08/2025 4:38 PM [facility] NRBC 0.0 <1.0 % LAB HEMETOLOGY METHOD 03/08/2025 4:38 PM [facility] NRBC Absolute 0.00 <0.10 K/mcL LAB HEMETOLOGY METHOD 03/08/2025 4:38 PM [facility] Neutrophils Relative 53.2 % LAB HEMETOLOGY METHOD 03/08/2025 4:38 PM [facility] Lymphocytes Relative 26.6 % LAB HEMETOLOGY METHOD 03/08/2025 4:38 PM [facility] Monocytes Relative 8.7 % LAB HEMETOLOGY METHOD 03/08/2025 4:38 PM [facility] Eosinophils Relative 10.7 % LAB HEMETOLOGY METHOD 03/08/2025 4:38 PM [facility] Basophils Relative 0.6 % LAB HEMETOLOGY METHOD 03/08/2025 4:38 PM [facility] Immature Granulocytes Relative 0.2 % LAB HEMETOLOGY METHOD 03/08/2025 4:38 PM [facility] Neutrophils Absolute 4.26 1.50 - 7.00 K/mcL LAB HEMETOLOGY METHOD 03/08/2025 4:38 PM EDT [facility] Lymphocytes Absolute 2.13 1.00 - 5.00 K/mcL LAB HEMETOLOGY METHOD 03/08/2025 4:38 PM EDT [facility] Monocytes Absolute 0.70 0.20 - 1.00 K/mcL LAB HEMETOLOGY METHOD 03/08/2025 4:38 PM EDT [facility] Eosinophils Absolute 0.86(H) 0.00 - 0.50 K/mcL LAB HEMETOLOGY METHOD 03/08/2025 4:38 PM EDT [facility] Basophils Absolute 0.05 0.00 - 0.20 K/mcL LAB HEMETOLOGY METHOD 03/08/2025 4:38 PM EDT [facility] Immature Granulocytes Absolute 0.02 0.00 - 0.03 K/mcL LAB HEMETOLOGY METHOD 03/08/2025 4:38 PM EDT [facility] Blood Venous blood specimen / Unknown Venipuncture / Unknown 03/08/2025 4:23 PM EDT 03/08/2025 4:31 PM EDT us Nicci Manjarrez MD LAB BLOOD ORDERABLES Final Resul t [facility] [address] [place] [address], [place] [phone] * hCG, serum, qualitative (03/08/2025 4:23 PM EDT) hCG Qual Negative Negative 03/08/2025 5:39 PM EDT [facility] Blood Venous blood specimen / Unknown Venipuncture / Unknown 03/08/2025 4:23 PM EDT 03/08/2025 4:31 PM EDT us Nicci Manjarrez MD LAB BLOOD ORDERABLES Final Resul t Performing Organization Address City/[facility] Co de Phone Number [facility] [address] [place] [address], [place] [phone] * B-type natriuretic peptide (03/08/2025 4:23 PM EDT) Pathologist [facility] BNP 3 <=100 pcg/mL LAB CHEMISTRY METHOD 03/08/2025 5:04 PM EDT [facility] Blood Venous blood specimen / Unknown Venipuncture / Unknown 03/08/2025 4:23 PM EDT 03/08/2025 4:31 PM EDT us Nicci Manjarrez MD LAB BLOOD ORDERABLES Final Resul t Performing Organization Address [facility] de Phone Number [facility] [address] [place] [address], [place] [phone] * Magnesium (03/08/2025 4:23 PM EDT) [facility] Magnesium 2.2 1.9 - 2.6 mg/dL LAB CHEMISTRY METHOD 03/08/2025 5:02 PM EDT [facility] Blood Venous blood specimen / Unknown Venipuncture / Unknown 03/08/2025 4:23 PM EDT 03/08/2025 4:31 PM EDT us Nicci Manjarrez MD LAB BLOOD ORDERABLES Final Resul t Performing Organization Address [facility]/ZIP Co de Phone Number [facility] [address] [place] [address], [place] [phone] * Lipase (03/08/2025 4:23 PM EDT) [facility] Lipase 61 13 - 75 unit/L LAB CHEMISTRY METHOD 03/08/2025 5:02 PM EDT [facility] Blood Venous blood specimen / Unknown Venipuncture / Unknown 03/08/2025 4:23 PM EDT 03/08/2025 4:31 PM EDT us Nicci Manjarrez MD LAB BLOOD ORDERABLES Final Resul t [facility] [address] [place] [address], [place] [phone] * Comprehensive metabolic panel (03/08/2025 4:23 PM EDT) Sodium 139 133 - 145 mmol/L LAB CHEMISTRY METHOD 03/08/2025 5:02 PM [facility] Potassium 3.5 3.5 - 5.5 mmol/L LAB CHEMISTRY METHOD 03/08/2025 5:02 PM [facility] Chloride 105 96 - 110 mmol/L LAB CHEMISTRY METHOD 03/08/2025 5:02 PM [facility] CO2 29 21 - 32 mmol/L LAB CHEMISTRY METHOD 03/08/2025 5:02 PM [facility] Anion Gap 5 3 - 11 LAB CHEMISTRY METHOD 03/08/2025 5:02 PM [facility] Glucose 94 70 - 100 mg/dL LAB CHEMISTRY METHOD 03/08/2025 5:02 PM [facility] BUN 11 5 - 25 mg/dL LAB CHEMISTRY METHOD 03/08/2025 5:02 PM [facility] Creatinine 0.81 0.50 - 1.10 mg/dL LAB CHEMISTRY METHOD 03/08/2025 5:02 PM [facility] eGFR 94 >=60 mL/min/1. 73m2 LAB CHEMISTRY METHOD 03/08/2025 5:02 PM [facility] Comment:Calculation based on the Chronic Kidney Disease Epidemiology Collaboration (CKD-EPI) equation refit without adjustment for race. BUN/Creatinine Ratio 13.6 LAB CHEMISTRY METHOD 03/08/2025 5:02 PM [facility] Calcium 9.6 8.5 - 10.5 mg/dL LAB CHEMISTRY METHOD 03/08/2025 5:02 PM EDT [facility] AST (SGOT) 11 10 - 42 unit/L LAB CHEMISTRY METHOD 03/08/2025 5:02 PM EDT [facility] ALT (SGPT) 11 10 - 60 unit/L LAB CHEMISTRY METHOD 03/08/2025 5:02 PM EDT [facility] Alkaline Phosphatase 64 42 - 121 unit/L LAB CHEMISTRY METHOD 03/08/2025 5:02 PM EDT [facility] Total Protein 7.4 6.0 - 8.0 g/dL LAB CHEMISTRY METHOD 03/08/2025 5:02 PM EDT [facility] Albumin 4.2 3.2 - 5.0 g/dL LAB CHEMISTRY METHOD 03/08/2025 5:02 PM EDT [facility] Total Bilirubin 0.6 0.0 - 1.4 mg/dL LAB CHEMISTRY METHOD 03/08/2025 5:02 PM EDT [facility] Blood Venous blood specimen / Unknown Venipuncture / Unknown 03/08/2025 4:23 PM EDT 03/08/2025 4:31 PM EDT us Nicci Manjarrez MD LAB BLOOD ORDERABLES Final Resul t [facility] [address] [place] [address], * ECG 12 lead (03/08/2025 1:48 PM EDT) Ventricular Rate ECG 71 BPM GEMUSE Atrial Rate 71 BPM GEMUSE P-R Interval 128 ms GEMUSE QRS Duration 86 ms GEMUSE Q-T Interval 392 ms GEMUSE QTc 425 ms GEMUSE P Wave [place] 19 degrees GEMUSE R [place] 18 degrees GEMUSE T [place] 42 degrees GEMUSE ECG Interpretation Normal sinus rhythm Normal ECG When compared with ECG of 16-SEP-2023 10:06, No significant change was found Confirmed by JODIE DUDLEY ([id number]) on 03/10/2025 10:35:36 AM GEMUSE 03/08/2025 1:48 PM EDT 03/10/2025 10:35 AM EDT us Nicci Manjarrez MD ECG ORDERABLES Final Result GEMUSE from Last 3 Months Insurance [facility] Care Teams Nurse Coordinator Relationship Specialty Start Date End Date Physician, Pcp Unknown PCP - General 03/08/25
== END 2025-06-01 15:55 | disposition home or self-care (01) ==
LOC: HO.HMCC 15:00
PROVIDERS: PCP Internal Medicine; Visit Provider Internal Medicine
DX: Z00.01 Encounter for general adult medical examination with abnormal findings (principal); R10.13 Epigastric pain; R12 Heartburn; F41.1 Generalized anxiety disorder; J30.9 Allergic rhinitis, unspecified; G47.00 Insomnia, unspecified; J45.20 Mild intermittent asthma, uncomplicated; Z71.89 Other specified counseling; Z23 Encounter for immunization; Z00.00 Encounter for general adult medical examination without abnormal findings

== ENCOUNTER → 2025-06-01 14:59 | Outpatient (BNVA) | payer OTHER, SELFPAY | PROVIDERS: PCP Internal Medicine; Visit Provider Internal Medicine | DX: Z00.01 Encounter for general adult medical examination with abnormal findings (principal); R12 Heartburn; F41.1 Generalized anxiety disorder; J30.9 Allergic rhinitis, unspecified; G47.00 Insomnia, unspecified; J45.20 Mild intermittent asthma, uncomplicated; F17.210 Nicotine dependence, cigarettes, uncomplicated; Z71.89 Other specified counseling; Z23 Encounter for immunization | CPT/HCPCS: 90471; 90656; 96127; 99396; 99497 ==